=== PATIENT | female | born 1940 | race Two or more races ===

== ENCOUNTER 2017-07-31 11:13 | Emergency (ER) | payer OTHER ==
[~2017-07-31] VITALS: Ht 162.6 cm; Wt 79.4 kg
== END 2017-07-31 16:51 | disposition home or self-care (01) ==
LOC: ER 11:13
DX: S01.02XA Laceration with foreign body of scalp, initial encounter (principal); W18.31XA Fall on same level due to stepping on an object, initial encounter; Y93.01 Activity, walking, marching and hiking; Y92.018 Other place in single-family (private) house as the place of occurrence of the external cause; Y99.8 Other external cause status

== ENCOUNTER 2017-08-10 11:23 | Emergency (ER) | payer OTHER ==
[~2017-08-10] VITALS: Ht 157.5 cm; Wt 77.1 kg
[2017-08-10] MEDS ORDERED: COZAAR100 MG (13:48)
[2017-08-10] MEDS ORDERED: FORTAMET1000 MG (13:49)
[2017-08-10] MEDS ORDERED: ADULT ASPIRIN81 MG (13:49)
== END 2017-08-10 13:55 | disposition home or self-care (01) ==
LOC: ER 11:23
DX: Z48.02 Encounter for removal of sutures (principal)

== ENCOUNTER 2022-08-13 12:44 | Inpatient (IN) | payer OTHER ==
[~2022-08-13] VITALS: Ht 152.4 cm; Wt 81.6 kg
[~2022-08-13 12:44] MED LIST: ADULT ASPIRIN81 MG; COZAAR100 MG; COZAAR25 MG; FORTAMET1000 MG; GLIMEPIRIDE1 MG; METFORMIN HCL500 M2; NABUMETONE500 MG PO; PERCOCET 5/3251 TAB PO; SIMVASTATIN5 MG; SYNTHROID50 MCG
[2022-08-13] MEDS ORDERED: JANUMET 50-1,01 EACH (12:59)
--- NOTE | 2022-08-13 13:00 | NUR ---
PTE ALERTA Y ORIENTADA EN PERSONA LLEGA EN AMBULANCIA POR EMT. EMT REFIERE QUE SKY VECINOS LLAMARON AL 911 PORQUE LA VIERON TIRADA EN EL PISO. PTE SE OBSERVA CON SLURRED SPEECH LADO DERECHO, SE OBSERVA QUE PUEDE WEATHERIZATION COORDINATOR EXTREMIDADES SUPERIORES E INFERIORES. EMT REFIERE QUE PTE NO TIENE FAMILIARES, Y QUE NO SABEN QUE TANTO TIEMPO LA PTE ESTABA EN EL PISO. SE REALIZA EKG Y SE PRESENTA A MEDICO DE TURNO.
[2022-08-13] MEDS ORDERED: 0.9 % SODIUM CHLORIDE 500 ML IV STA (13:59)
--- NOTE | 2022-08-13 14:12 | NUR ---
ANA LUISA VILLASENOR ORIENTA A PTE SOBRE TRATAMIENTO A SEGUIR. LE COLECTA MUESTRAS, SE CANALIZA Y SE ADMINISTRA MEDICAMENTO AMANDA ORDEN MEDICA. PENDIENTE BOWLING BALL FINISHER, U/A, XRAY Y CT
[2022-08-13 15:38] LABS: HEMATOCRIT 40.7 % (36.0-45.00); MEAN CELL VOLUME 77.8 fL (80.00-100.00); MEAN CORPUSCULAR HEMOGLOBIN 24.8 pg (27.00-32.0); MEAN CORPUSCULAR HGB CONC 31.9 g/dl (32.0-36.0); PLATELET COUNT 319 K/uL (150-450); RED BLOOD COUNT 5.23 M/uL (4.00-6.00); RED CELL DISTRIBUTION WIDTH 17.6 % (11.5-14.5)
[2022-08-13 15:52] LABS: ALBUMIN 3.4 gm/dL (3.4-5.0); BILIRUBIN TOTAL 0.77 mg/dL (0.3-1.2); CALCIUM 9.5 mg/dL (8.5-10.1); CREATININE SERUM 0.78 mg/dL (0.55-1.02); GFR 70.71; GLOBULINA 4.1 G/DL (2.4-3.5); POTASSIUM 3.78 mEq/L (3.5-5.1); TOTAL PROTEIN 7.5 gm/dL (6.4-8.2)
[2022-08-13 15:54] LABS: INR 1.06; PARTIAL THROMBOPLASTIN TIME 29.2 SECONDS (22.0-34.0); PROTHROMBIN TIME 11.1 SECONDS (9.0-11.5)
[2022-08-13] MEDS ORDERED: NITROGLYCERIN IN 5 % DEXTROSE 250 ML IV SCH (17:30)
--- NOTE | 2022-08-13 19:44 | NUR ---
SE EJECUTAN TODAS LAS ORDENES MEDICAS BAJO MEDIDAS ASEPTICAS, PACIENTE PENDIENTE A RESULTADOS DE LABORATORIO.
[2022-08-13] MEDS ORDERED: PIPERACILLIN/TAZOBACTAM SODIUM 3.375 GM in DEXTROSE 5 % IN WATER 100 ML IV SCH (20:51)
[2022-08-13] MEDS ORDERED: INSULIN LISPRO 300 UNIT/3 ML UNITS SUBCUTANEO PRN (21:00)
[2022-08-13] MEDS ORDERED: ACETAMINOPHEN 500 MG GEL..CAP PO PRN (21:00)
[2022-08-13] MEDS ORDERED: DEXTROSE 50 % IN WATER 0.5 G/ML DISP.SYRIN IV PRN (21:00)
[2022-08-13] MEDS ORDERED: ONDANSETRON HCL 4 MG in 0.9 % SODIUM CHLORIDE 50 ML IV PRN (21:00)
[2022-08-13 21:05] LABS: PH,URINE 5.5 (5.0-8.0); URINE APPEARANCE Cloudy; URINE BILIRRUBIN Negative (NEGATIVE); URINE BLOOD Small; URINE COLOR Yellow; URINE GLUCOSE Negative (NEGATIVE); URINE LEUKOCYTE Moderate; URINE NITRATE Positive
[2022-08-13 21:08] LABS: URINE BACTERIA 6606.4 uL (0.0-1933); URINE EPITHELIAL CELLS 157.9 uL (0.0-38.8); URINE RBC 30.5 uL (0.0-20.8); URINE WBC 48.4 uL (0.0-23.2)
[2022-08-13 21:51] LABS: URINE PROTEIN 100 (NEGATIVE)
[2022-08-13] MEDS ORDERED: 0.9 % SODIUM CHLORIDE 1,000 ML IV SCH (23:45)
[2022-08-14 06:26] LABS: ABG PH 7.371 (7.35-7.45); ABG PO2 121.7 mmHg (80-100); ABG pCO2 37.1 mmHg (35-45); BASE EXCESS -3.7 mmol/l; SaO2 98.5 %; Tco2 22.2 mmol/l
[2022-08-14 06:54] LABS: allen test SATISFACTORY; o2 32 %; puncture site RADIAL LEFT
[2022-08-14 07:00] LABS: HEMATOCRIT 36.8 % (36.0-45.00); HEMOGLOBIN 11.7 g/dL (12.0-15.00); MEAN CORPUSCULAR HEMOGLOBIN 24.8 pg (27.00-32.0); MEAN CORPUSCULAR HGB CONC 31.8 g/dl (32.0-36.0); PLATELET COUNT 255 K/uL (150-450); RED BLOOD COUNT 4.71 M/uL (4.00-6.00); RED CELL DISTRIBUTION WIDTH 17.8 % (11.5-14.5)
[2022-08-14 07:20] LABS: CHOL HDL RATIO 5.8 (0-5.0); TSH 1.13 uIU/mL (0.358-3.74)
[2022-08-14 07:34] LABS: ERYTHROCYTE SEDIMENTATION RATE 83 mm/hr
[2022-08-14] MEDS ORDERED: FAMOTIDINE/PF 20 MG in 0.9 % SODIUM CHLORIDE 8 ML IV PUSH SCH (09:00)
[2022-08-14] MEDS ORDERED: ASPIRIN 81 MG TAB.CHEW PO SCH (09:00)
[2022-08-14] MEDS ORDERED: ATORVASTATIN CALCIUM 40 MG TABLET PO SCH (09:00)
[2022-08-14] MEDS ORDERED: PIPERACILLIN/TAZOBACTAM SODIUM 3.375 GM in 0.9 % SODIUM CHLORIDE 100 ML IV SCH (12:00)
[2022-08-14] MEDS ORDERED: LOSARTAN POTASSIUM 100 MG TABLET PO SCH ×2 (15:31→17:00)
[2022-08-14] MEDS ORDERED: ENALAPRILAT DIHYDRATE 1.25 MG/ML VIAL IV PRN (15:45)
[2022-08-14] MEDS ORDERED: NABUMETONE750 MG (16:02)
[2022-08-14] MEDS ORDERED: SIMVASTATIN40 MG (16:02)
[2022-08-14] MEDS ORDERED: PENTOXIFYLLINE400 MG (16:02)
[2022-08-14] MEDS ORDERED: GLIMEPIRIDE4 M1 (16:02)
[2022-08-14] MEDS ORDERED: CEFTRIAXONE SODIUM 2,000 MG VIAL IV SCH (17:00)
[2022-08-15 06:47] LABS: HEMATOCRIT 36.5 % (36.0-45.00); HEMOGLOBIN 11.8 g/dL (12.0-15.00); MEAN CELL VOLUME 78.7 fL (80.00-100.00); MEAN CORPUSCULAR HEMOGLOBIN 25.5 pg (27.00-32.0); MEAN CORPUSCULAR HGB CONC 32.3 g/dl (32.0-36.0); PLATELET COUNT 237 K/uL (150-450); RED BLOOD COUNT 4.64 M/uL (4.00-6.00); RED CELL DISTRIBUTION WIDTH 18.1 % (11.5-14.5)
[2022-08-15 08:46] LABS: ALBUMIN 2.9 gm/dL (3.4-5.0); BILIRUBIN TOTAL 0.45 mg/dL (0.3-1.2); CALCIUM 9.1 mg/dL (8.5-10.1); CREATININE SERUM 0.88 mg/dL (0.55-1.02); GFR 61.52; GLOBULINA 3.4 G/DL (2.4-3.5); MAGNESIUM 2.5 mg/dL (1.8-2.4); POTASSIUM 4.4 mEq/L (3.5-5.1); TOTAL PROTEIN 6.3 gm/dL (6.4-8.2)
[2022-08-15 08:49] LABS: C-REACTIVE PROTEIN 22.1 MG/DL (0.00-0.29)
[2022-08-15] MEDS ORDERED: ENOXAPARIN SODIUM 40 MG/0.4 ML SYRINGE SUBCUTANEO SCH (09:00)
[2022-08-15 09:13] LABS: CKMB 3.3 NG/ML (0.5-3.6)
[2022-08-15] MEDS ORDERED: FLUCONAZOLE IN NACL,ISO-OSM 400 MG/200 ML PIGGYBAG IV ONE (13:45)
[2022-08-15 13:49] LABS: PH,URINE 5.5 (5.0-8.0); URINE APPEARANCE Turbid; URINE BILIRRUBIN Negative (NEGATIVE); URINE BLOOD Moderate; URINE COLOR Yellow; URINE GLUCOSE Negative (NEGATIVE); URINE LEUKOCYTE Moderate; URINE NITRATE Negative; URINE PROTEIN 30 (NEGATIVE)
[2022-08-15 13:50] LABS: URINE BACTERIA 414.2 uL (0.0-1933); URINE EPITHELIAL CELLS 45.9 uL (0.0-38.8); URINE WBC 1459.8 uL (0.0-23.2)
[2022-08-15 14:09] LABS: URINE CRYSTALS MODERATE /HPF
[2022-08-15] MEDS ORDERED: CLOPIDOGREL BISULFATE 75 MG TABLET PO SCH (15:40)
[2022-08-16] MEDS ORDERED: FLUCONAZOLE IN NACL,ISO-OSM 100 ML IV SCH (12:00)
[2022-08-17] MEDS ORDERED: EMOLLIENT COMBINATION NO.92 2.5 OZ BOTTLE TOP SCH (09:00)
[2022-08-17] MEDS ORDERED: FUROsemide 20 MG/2 ML VIAL IV STA (19:20)
[2022-08-17] MEDS ORDERED: NITROGLYCERIN IN 5 % DEXTROSE 50 MG/250 ML BOTTLE IV SCH (21:00)
[2022-08-18] MEDS ORDERED: METOPROLOL TARTRATE 5MG/5ML AMPUL IV STA (02:46)
[2022-08-18] MEDS ORDERED: METOPROLOL TARTRATE 25 MG TABLET PO SCH (05:00)
[2022-08-18 06:23] LABS: HEMATOCRIT 35.4 % (36.0-45.00); HEMOGLOBIN 11.4 g/dL (12.0-15.00); MEAN CELL VOLUME 78.2 fL (80.00-100.00); MEAN CORPUSCULAR HEMOGLOBIN 25.2 pg (27.00-32.0); MEAN CORPUSCULAR HGB CONC 32.2 g/dl (32.0-36.0); PLATELET COUNT 250 K/uL (150-450); RED BLOOD COUNT 4.53 M/uL (4.00-6.00); RED CELL DISTRIBUTION WIDTH 18.8 % (11.5-14.5)
[2022-08-18] MEDS ORDERED: NITROGLYCERIN IN 5 % DEXTROSE 250 ML IV SCH (06:30)
[2022-08-18 06:48] LABS: CALCIUM 8.6 mg/dL (8.5-10.1); CREATININE SERUM 1.71 mg/dL (0.55-1.02); GFR 28.58; MAGNESIUM 2.5 mg/dL (1.8-2.4); PHOSPHOROUS 3.8 mg/dL (2.5-4.9); POTASSIUM 4.39 mEq/L (3.5-5.1)
[2022-08-18 06:51] LABS: C-REACTIVE PROTEIN 11.2 MG/DL (0.00-0.29)
[2022-08-18 07:05] LABS: ERYTHROCYTE SEDIMENTATION RATE 89 mm/hr
[2022-08-18] MEDS ORDERED: hydrALAZINE HCL 20 MG VIAL IV PRN (18:30)
[2022-08-18] MEDS ORDERED: SODIUM CHLORIDE 0.45 % 1,000 ML IV SCH (18:30)
[2022-08-19] MEDS ORDERED: METOPROLOL TARTRATE 25 MG TABLET PO SCH ×2 (01:00→05:00)
[2022-08-19 07:37] LABS: HEMATOCRIT 32.9 % (36.0-45.00); HEMOGLOBIN 10.5 g/dL (12.0-15.00); MEAN CELL VOLUME 78.9 fL (80.00-100.00); MEAN CORPUSCULAR HEMOGLOBIN 25.1 pg (27.00-32.0); MEAN CORPUSCULAR HGB CONC 31.9 g/dl (32.0-36.0); PLATELET COUNT 172 K/uL (150-450); RED BLOOD COUNT 4.17 M/uL (4.00-6.00); RED CELL DISTRIBUTION WIDTH 18.4 % (11.5-14.5)
[2022-08-19 08:20] LABS: ALBUMIN 2.4 gm/dL (3.4-5.0); CALCIUM 7.9 mg/dL (8.5-10.1); CREATININE SERUM 2.44 mg/dL (0.55-1.02); GFR 18.96; PHOSPHOROUS 4.2 mg/dL (2.5-4.9); POTASSIUM 4.38 mEq/L (3.5-5.1)
[2022-08-19] MEDS ORDERED: AMLODIPINE BESYLATE 5 MG TABLET PO SCH (09:00)
[2022-08-19] MEDS ORDERED: METOPROLOL TARTRATE 50 MG TABLET PO SCH (13:00)
[2022-08-19] MEDS ORDERED: MEROPENEM 500 MG/VIAL VIAL IV SCH (13:03)
[2022-08-20 07:41] LABS: URINE BILIRRUBIN NEGATIVE (NEGATIVE); URINE BLOOD LARGE; URINE GLUCOSE NEGATIVE (NEGATIVE); URINE LEUKOCYTE TRACE; URINE NITRATE POSITIVE; URINE PROTEIN NEGATIVE (NEGATIVE); URINE UROBILINOGEN 0.2 E.U./dl
[2022-08-20 08:02] LABS: PH,URINE 5.5; URINE APPEARANCE CLEAR; URINE COLOR YELLOW
[2022-08-20 08:03] LABS: URINE BACTERIA 41.5 uL (0.0-1933); URINE EPITHELIAL CELLS 9.8 uL (0.0-38.8); URINE RBC 280.9 uL (0.0-20.8); URINE WBC 160.8 uL (0.0-23.2)
[2022-08-20 08:06] LABS: URINE CRYSTALS MODERATE /HPF; URINE YEAST MODERATE /hpf
[2022-08-20 10:48] LABS: ALBUMIN 2.2 gm/dL (3.4-5.0); CALCIUM 8.3 mg/dL (8.5-10.1); CREATININE SERUM 0.85 mg/dL (0.55-1.02); GFR 64.03; PHOSPHOROUS 3.5 mg/dL (2.5-4.9); POTASSIUM 4.46 mEq/L (3.5-5.1)
[2022-08-20 11:28] LABS: PROCALCITONIN 0.119 ng/ml (0.020-0.080)
[2022-08-20 11:35] LABS: CORTISOL 25.1 ug/dl
[2022-08-21 07:32] LABS: CALCIUM 7.8 mg/dL (8.5-10.1); CREATININE SERUM 0.62 mg/dL (0.55-1.02); GFR 92.15; PHOSPHOROUS 3.4 mg/dL (2.5-4.9); POTASSIUM 4.37 mEq/L (3.5-5.1)
[2022-08-21 07:33] LABS: CALCIUM 7.8 mg/dL (8.5-10.1); CREATININE SERUM 0.58 mg/dL (0.55-1.02); GFR 99.53; POTASSIUM 4.32 mEq/L (3.5-5.1)
[2022-08-21] MEDS ORDERED: AMLODIPINE BESYLATE 10 MG TABLET PO SCH (09:00)
[2022-08-21 13:18] LABS: PLATELET ESTIMATE NORMAL (NORMAL)
[2022-08-21] MEDS ORDERED: MEROPENEM 500 MG/VIAL VIAL IV SCH (17:00)
[2022-08-22] MEDS ORDERED: AMINO ACIDS/PROTEIN HYDROLYS 30 ML BLIST.PACK NGT SCH (17:00)
[2022-08-22] MEDS ORDERED: FAMOtidine 20 MG TABLET PO SCH (17:00)
[2022-08-22] MEDS ORDERED: BETHANECHOL CHLORIDE 25 MG TABLET PO SCH (17:00)
[2022-08-23 06:53] LABS: HEMATOCRIT 35.4 % (36.0-45.00); HEMOGLOBIN 11.5 g/dL (12.0-15.00); MEAN CELL VOLUME 77.4 fL (80.00-100.00); MEAN CORPUSCULAR HGB CONC 32.3 g/dl (32.0-36.0); PLATELET COUNT 229 K/uL (150-450); RED BLOOD COUNT 4.58 M/uL (4.00-6.00); RED CELL DISTRIBUTION WIDTH 17.9 % (11.5-14.5)
[2022-08-23 07:52] LABS: ALBUMIN 2.3 gm/dL (3.4-5.0); CREATININE SERUM 1.44 mg/dL (0.55-1.02); GFR 34.85; POTASSIUM 3.95 mEq/L (3.5-5.1)
[2022-08-24 08:07] LABS: ALBUMIN 1.9 gm/dL (3.4-5.0); BILIRUBIN TOTAL 0.22 mg/dL (0.3-1.2); CALCIUM 7.6 mg/dL (8.5-10.1); CREATININE SERUM 0.61 mg/dL (0.55-1.02); GFR 93.9; GLOBULINA 2.7 G/DL (2.4-3.5); POTASSIUM 4.26 mEq/L (3.5-5.1); TOTAL PROTEIN 4.6 gm/dL (6.4-8.2)
[2022-08-24] MEDS ORDERED: hydrALAZINE HCL 25 MG TABLET PO SCH (21:00)
[2022-08-25 06:29] LABS: HEMATOCRIT 30.7 % (36.0-45.00); MEAN CELL VOLUME 76.9 fL (80.00-100.00); MEAN CORPUSCULAR HEMOGLOBIN 25.1 pg (27.00-32.0); MEAN CORPUSCULAR HGB CONC 32.6 g/dl (32.0-36.0); PLATELET COUNT 198 K/uL (150-450); RED BLOOD COUNT 3.99 M/uL (4.00-6.00); RED CELL DISTRIBUTION WIDTH 18.3 % (11.5-14.5)
[2022-08-25 07:00] LABS: CALCIUM 7.8 mg/dL (8.5-10.1); CREATININE SERUM 0.46 mg/dL (0.55-1.02); GFR 130.05; POTASSIUM 4.37 mEq/L (3.5-5.1)
[2022-08-25] MEDS ORDERED: hydrALAZINE HCL 10 MG TABLET PO SCH (09:00)
[2022-08-25] MEDS ORDERED: LACTOBACILLUS ACIDOPHILUS 1 CAP CAP PO SCH (17:00)
[2022-08-26] MEDS ORDERED: IRON FUM,PS/FOLIC/BCOMP,C NO.9 1 CAP CAPSULE PO SCH (09:00)
[2022-08-27 11:27] LABS: ALBUMIN 2.1 gm/dL (3.4-5.0); BILIRUBIN TOTAL 0.36 mg/dL (0.3-1.2); CALCIUM 8.2 mg/dL (8.5-10.1); CREATININE SERUM 0.42 mg/dL (0.55-1.02); GFR 144.44; GLOBULINA 3.1 G/DL (2.4-3.5); POTASSIUM 5.02 mEq/L (3.5-5.1); TOTAL PROTEIN 5.2 gm/dL (6.4-8.2)
[2022-08-29] MEDS ORDERED: 0.9 % SODIUM CHLORIDE 1,000 ML IV SCH (08:11)
[2022-08-30 08:53] LABS: BILIRUBIN TOTAL 0.3 mg/dL (0.3-1.2); CALCIUM 8.2 mg/dL (8.5-10.1); CREATININE SERUM 0.49 mg/dL (0.55-1.02); GFR 120.91; GLOBULINA 3.2 G/DL (2.4-3.5); POTASSIUM 5.47 mEq/L (3.5-5.1); TOTAL PROTEIN 5.2 gm/dL (6.4-8.2)
[2022-08-30 09:22] LABS: INR 1.07; PROTHROMBIN TIME 11.2 SECONDS (9.0-11.5)
[2022-08-30 09:26] LABS: PARTIAL THROMBOPLASTIN TIME < 20.0 SECONDS (22.0-34.0)
[2022-08-31] MEDS ORDERED: MEROPENEM 500 MG/VIAL VIAL IV SCH (14:31)
[2022-09-01 22:49] LABS: ALBUMIN 2.1 gm/dL (3.4-5.0); BILIRUBIN TOTAL 0.42 mg/dL (0.3-1.2); CALCIUM 8.5 mg/dL (8.5-10.1); CREATININE SERUM 0.38 mg/dL (0.55-1.02); GFR 162.13; GLOBULINA 3.1 G/DL (2.4-3.5); POTASSIUM 4.82 mEq/L (3.5-5.1); TOTAL PROTEIN 5.2 gm/dL (6.4-8.2)
[2022-09-03 15:50] LABS: ALBUMIN 2.3 gm/dL (3.4-5.0); BILIRUBIN TOTAL 0.45 mg/dL (0.3-1.2); CALCIUM 8.6 mg/dL (8.5-10.1); CREATININE SERUM 0.65 mg/dL (0.55-1.02); GFR 87.26; GLOBULINA 3.4 G/DL (2.4-3.5); POTASSIUM 4.26 mEq/L (3.5-5.1); TOTAL PROTEIN 5.7 gm/dL (6.4-8.2)
[2022-09-03 16:06] LABS: URINE BILIRRUBIN NEGATIVE (NEGATIVE); URINE BLOOD MODERATE; URINE LEUKOCYTE SMALL; URINE NITRATE NEGATIVE; URINE PROTEIN NEGATIVE (NEGATIVE); URINE UROBILINOGEN 0.2 E.U./dl
[2022-09-03 16:31] LABS: URINE APPEARANCE CLEAR; URINE COLOR YELLOW; URINE GLUCOSE 250 MG/DL (NEGATIVE)
[2022-09-03 16:32] LABS: URINE BACTERIA FEW; URINE EPITHELIAL CELLS 0-4 /HPF; URINE WBC 13-20 /hpf; URINE YEAST MODERATE /hpf
[2022-09-03] MEDS ORDERED: VANCOMYCIN HCL 1,000 MG VIAL IV SCH (17:00)
[2022-09-03] MEDS ORDERED: MEROPENEM 500 MG/VIAL VIAL IV SCH (17:00)
[2022-09-03] MEDS ORDERED: INSULIN GLARGINE,HUM.REC.ANLOG 1,000 UNITS/10 ML UNITS SUBCUTANEO STA (21:29)
[2022-09-04 07:45] LABS: HEMATOCRIT 29.9 % (36.0-45.00); HEMOGLOBIN 9.9 g/dL (12.0-15.00); MEAN CORPUSCULAR HEMOGLOBIN 25.8 pg (27.00-32.0); PLATELET COUNT 265 K/uL (150-450); RED BLOOD COUNT 3.83 M/uL (4.00-6.00); RED CELL DISTRIBUTION WIDTH 18.3 % (11.5-14.5)
[2022-09-04] MEDS ORDERED: FLUCONAZOLE IN NACL,ISO-OSM 200 MG/100 ML PIGGYBAG IV ONE (16:00)
[2022-09-04] MEDS ORDERED: FLUCONAZOLE IN NACL,ISO-OSM 2 MG/ML ML IV SCH (17:00)
[2022-09-04] MEDS ORDERED: INSULIN GLARGINE,HUM.REC.ANLOG 1,000 UNITS/10 ML UNITS SUBCUTANEO SCH (21:00)
[2022-09-05] MEDS ORDERED: FLUCONAZOLE IN NACL,ISO-OSM 50 ML IV SCH (12:00)
[2022-09-05] MEDS ORDERED: FLUCONAZOLE IN NACL,ISO-OSM 2 MG/ML ML IV SCH (17:00)
[2022-09-06 07:55] LABS: HEMATOCRIT 31.4 % (36.0-45.00); HEMOGLOBIN 10.3 g/dL (12.0-15.00); MEAN CELL VOLUME 77.6 fL (80.00-100.00); MEAN CORPUSCULAR HEMOGLOBIN 25.4 pg (27.00-32.0); MEAN CORPUSCULAR HGB CONC 32.7 g/dl (32.0-36.0); PLATELET COUNT 275 K/uL (150-450); RED BLOOD COUNT 4.05 M/uL (4.00-6.00); RED CELL DISTRIBUTION WIDTH 17.6 % (11.5-14.5)
[2022-09-06 08:04] LABS: BILIRUBIN TOTAL 0.49 mg/dL (0.3-1.2); CALCIUM 8.4 mg/dL (8.5-10.1); CREATININE SERUM 0.31 mg/dL (0.55-1.02); GFR 205.07; GLOBULINA 3.1 G/DL (2.4-3.5); POTASSIUM 4.21 mEq/L (3.5-5.1); TOTAL PROTEIN 5.1 gm/dL (6.4-8.2)
[2022-09-07 10:18] LABS: ABG PH 7.437 (7.35-7.45); ABG PO2 76.3 mmHg (80-100); ABG pCO2 34.5 mmHg (35-45); BASE EXCESS -0.8 mmol/l; BICARBONATE 22.8 mmol/l (23-25); SaO2 95.6 %; Tco2 23.8 mmol/l; o2 21 %; puncture site RADIAL LEFT
[2022-09-07 10:19] LABS: allen test SATISFACTORY
[2022-09-09] MEDS ORDERED: SODIUM HYPOCHLORITE 1OZ TOP SCH (11:32)
[2022-09-09 15:09] LABS: HEMATOCRIT 36.1 % (36.0-45.00); HEMOGLOBIN 11.6 g/dL (12.0-15.00); MEAN CELL VOLUME 79.4 fL (80.00-100.00); MEAN CORPUSCULAR HEMOGLOBIN 25.4 pg (27.00-32.0); PLATELET COUNT 321 K/uL (150-450); RED BLOOD COUNT 4.55 M/uL (4.00-6.00); RED CELL DISTRIBUTION WIDTH 17.3 % (11.5-14.5)
[2022-09-09 15:35] LABS: ALBUMIN 2.4 gm/dL (3.4-5.0); BILIRUBIN TOTAL 0.52 mg/dL (0.3-1.2); CALCIUM 9.1 mg/dL (8.5-10.1); CREATININE SERUM 0.38 mg/dL (0.55-1.02); FERRITIN 105.2 NG/ML (8-252); GFR 162.13; GLOBULINA 3.4 G/DL (2.4-3.5); POTASSIUM 4.71 mEq/L (3.5-5.1); TOTAL PROTEIN 5.8 gm/dL (6.4-8.2)
[2022-09-09 15:43] LABS: C-REACTIVE PROTEIN 4.8 MG/DL (0.00-0.29)
[2022-09-09] MEDS ORDERED: VANCOMYCIN HCL 1,000 MG VIAL IV SCH (17:00)
[2022-09-10 09:02] LABS: HEMATOCRIT 33.2 % (36.0-45.00); HEMOGLOBIN 10.9 g/dL (12.0-15.00); MEAN CELL VOLUME 77.7 fL (80.00-100.00); MEAN CORPUSCULAR HEMOGLOBIN 25.4 pg (27.00-32.0); MEAN CORPUSCULAR HGB CONC 32.6 g/dl (32.0-36.0); PLATELET COUNT 304 K/uL (150-450); RED BLOOD COUNT 4.28 M/uL (4.00-6.00); RED CELL DISTRIBUTION WIDTH 18.1 % (11.5-14.5)
[2022-09-10 09:37] LABS: ALBUMIN 2.4 gm/dL (3.4-5.0); BILIRUBIN TOTAL 0.55 mg/dL (0.3-1.2); CALCIUM 8.9 mg/dL (8.5-10.1); CREATININE SERUM 0.31 mg/dL (0.55-1.02); GFR 205.07; GLOBULINA 3.3 G/DL (2.4-3.5); POTASSIUM 4.27 mEq/L (3.5-5.1); TOTAL PROTEIN 5.7 gm/dL (6.4-8.2)
[2022-09-11 08:02] LABS: HEMOGLOBIN 11.8 g/dL (12.0-15.00); MEAN CELL VOLUME 78.2 fL (80.00-100.00); MEAN CORPUSCULAR HEMOGLOBIN 25.7 pg (27.00-32.0); MEAN CORPUSCULAR HGB CONC 32.8 g/dl (32.0-36.0); PLATELET COUNT 337 K/uL (150-450); RED CELL DISTRIBUTION WIDTH 17.7 % (11.5-14.5)
[2022-09-11 08:44] LABS: ALBUMIN 2.5 gm/dL (3.4-5.0); BILIRUBIN TOTAL 0.72 mg/dL (0.3-1.2); CALCIUM 9.6 mg/dL (8.5-10.1); CREATININE SERUM 0.38 mg/dL (0.55-1.02); GFR 162.13; GLOBULINA 3.6 G/DL (2.4-3.5); POTASSIUM 4.79 mEq/L (3.5-5.1); TOTAL PROTEIN 6.1 gm/dL (6.4-8.2)
[2022-09-11 08:45] LABS: C-REACTIVE PROTEIN 5.38 MG/DL (0.00-0.29)
[2022-09-11] MEDS ORDERED: AMINO ACIDS/PROTEIN HYDROLYS 30 ML BLIST.PACK PO SCH (09:00)
[2022-09-11] MEDS ORDERED: CIPROFLOXACIN IN 5 % DEXTROSE 400 MG/200 ML PIGGYBAG IV SCH (17:00)
[2022-09-12 07:47] LABS: HEMATOCRIT 33.3 % (36.0-45.00); HEMOGLOBIN 11.1 g/dL (12.0-15.00); MEAN CELL VOLUME 77.5 fL (80.00-100.00); MEAN CORPUSCULAR HEMOGLOBIN 25.9 pg (27.00-32.0); MEAN CORPUSCULAR HGB CONC 33.3 g/dl (32.0-36.0); PLATELET COUNT 309 K/uL (150-450); RED BLOOD COUNT 4.29 M/uL (4.00-6.00); RED CELL DISTRIBUTION WIDTH 17.4 % (11.5-14.5)
[2022-09-12 08:15] LABS: ALBUMIN 2.3 gm/dL (3.4-5.0); BILIRUBIN TOTAL 0.53 mg/dL (0.3-1.2); CALCIUM 9.1 mg/dL (8.5-10.1); CREATININE SERUM 0.34 mg/dL (0.55-1.02); GFR 184.33; GLOBULINA 3.2 G/DL (2.4-3.5); POTASSIUM 4.51 mEq/L (3.5-5.1); TOTAL PROTEIN 5.5 gm/dL (6.4-8.2)
[2022-09-12] MEDS ORDERED: IPRATROPIUM BROMIDE 0.5 MG/2.5 ML AMPUL.NEB IH SCH (13:01)
[2022-09-14] MEDS ORDERED: INSULIN GLARGINE,HUM.REC.ANLOG 1,000 UNITS/10 ML UNITS SUBCUTANEO SCH (21:00)
[2022-09-15 09:44] LABS: HEMATOCRIT 29.8 % (36.0-45.00); HEMOGLOBIN 9.7 g/dL (12.0-15.00); MEAN CELL VOLUME 79.1 fL (80.00-100.00); MEAN CORPUSCULAR HEMOGLOBIN 25.8 pg (27.00-32.0); MEAN CORPUSCULAR HGB CONC 32.6 g/dl (32.0-36.0); PLATELET COUNT 263 K/uL (150-450); RED BLOOD COUNT 3.76 M/uL (4.00-6.00); RED CELL DISTRIBUTION WIDTH 17.5 % (11.5-14.5)
[2022-09-15 11:50] LABS: ALBUMIN 2.3 gm/dL (3.4-5.0); BILIRUBIN TOTAL 0.65 mg/dL (0.3-1.2); CALCIUM 8.2 mg/dL (8.5-10.1); CREATININE SERUM 0.3 mg/dL (0.55-1.02); GFR 212.98; GLOBULINA 3.1 G/DL (2.4-3.5); POTASSIUM 4.07 mEq/L (3.5-5.1); TOTAL PROTEIN 5.4 gm/dL (6.4-8.2)
[2022-09-16] MEDS ORDERED: AMPICILLIN SODIUM/SULBACTAM NA 3,000 MG VIAL IV SCH (14:00)
[2022-09-16] MEDS ORDERED: INSULIN GLARGINE,HUM.REC.ANLOG 1,000 UNITS/10 ML UNITS SUBCUTANEO SCH (21:00)
[2022-09-17] MEDS ORDERED: VANCOMYCIN HCL 5 MG/ML REDILUIDO IV SCH (17:00)
[2022-09-19 08:31] LABS: HEMATOCRIT 30.9 % (36.0-45.00); HEMOGLOBIN 10.2 g/dL (12.0-15.00); MEAN CELL VOLUME 79.7 fL (80.00-100.00); MEAN CORPUSCULAR HEMOGLOBIN 26.3 pg (27.00-32.0); RED BLOOD COUNT 3.88 M/uL (4.00-6.00); RED CELL DISTRIBUTION WIDTH 17.5 % (11.5-14.5)
[2022-09-19 08:40] LABS: BILIRUBIN TOTAL 0.46 mg/dL (0.3-1.2); C-REACTIVE PROTEIN 6.43 MG/DL (0.00-0.29); CALCIUM 8.3 mg/dL (8.5-10.1); CREATININE SERUM 0.36 mg/dL (0.55-1.02); GFR 172.57; GLOBULINA 3.1 G/DL (2.4-3.5); MAGNESIUM 1.9 mg/dL (1.8-2.4); POTASSIUM 4.4 mEq/L (3.5-5.1); TOTAL PROTEIN 5.1 gm/dL (6.4-8.2)
[2022-09-19 09:11] LABS: PLATELET COUNT 195 K/uL (150-450)
[2022-09-22 12:54] LABS: HEMOGLOBIN 10.8 g/dL (12.0-15.00); MEAN CELL VOLUME 79.2 fL (80.00-100.00); MEAN CORPUSCULAR HGB CONC 32.8 g/dl (32.0-36.0); PLATELET COUNT 238 K/uL (150-450); RED BLOOD COUNT 4.17 M/uL (4.00-6.00); RED CELL DISTRIBUTION WIDTH 17.6 % (11.5-14.5)
[2022-09-22 13:55] LABS: ALBUMIN 2.4 gm/dL (3.4-5.0); BILIRUBIN TOTAL 0.55 mg/dL (0.3-1.2); CALCIUM 8.9 mg/dL (8.5-10.1); CREATININE SERUM 0.38 mg/dL (0.55-1.02); GFR 162.13; GLOBULINA 3.4 G/DL (2.4-3.5); POTASSIUM 4.18 mEq/L (3.5-5.1); TOTAL PROTEIN 5.8 gm/dL (6.4-8.2)
[2022-09-23 09:32] LABS: ALBUMIN 2.3 gm/dL (3.4-5.0); BILIRUBIN TOTAL 0.53 mg/dL (0.3-1.2); C-REACTIVE PROTEIN 4.02 MG/DL (0.00-0.29); CALCIUM 8.6 mg/dL (8.5-10.1); CREATININE SERUM 0.35 mg/dL (0.55-1.02); GFR 178.27; MAGNESIUM 1.9 mg/dL (1.8-2.4); PHOSPHOROUS 3.9 mg/dL (2.5-4.9); POTASSIUM 4.03 mEq/L (3.5-5.1); TOTAL PROTEIN 5.3 gm/dL (6.4-8.2)
[2022-09-24] MEDS ORDERED: VANCOMYCIN HCL 1,000 MG VIAL IV SCH (17:00)
[2022-09-25 07:44] LABS: HEMATOCRIT 27.9 % (36.0-45.00); HEMOGLOBIN 9.2 g/dL (12.0-15.00); MEAN CELL VOLUME 78.6 fL (80.00-100.00); MEAN CORPUSCULAR HEMOGLOBIN 25.9 pg (27.00-32.0); PLATELET COUNT 273 K/uL (150-450); RED BLOOD COUNT 3.55 M/uL (4.00-6.00); RED CELL DISTRIBUTION WIDTH 17.7 % (11.5-14.5)
[2022-09-25 08:14] LABS: BILIRUBIN TOTAL 0.41 mg/dL (0.3-1.2); CALCIUM 8.4 mg/dL (8.5-10.1); CREATININE SERUM 0.36 mg/dL (0.55-1.02); GFR 172.57; GLOBULINA 2.9 G/DL (2.4-3.5); MAGNESIUM 1.8 mg/dL (1.8-2.4); PHOSPHOROUS 4.2 mg/dL (2.5-4.9); POTASSIUM 3.9 mEq/L (3.5-5.1); TOTAL PROTEIN 4.9 gm/dL (6.4-8.2)
[2022-09-25 08:20] LABS: C-REACTIVE PROTEIN 4.71 MG/DL (0.00-0.29)
[2022-09-28] MEDS ORDERED: AMINO ACIDS/PROTEIN HYDROLYS 30 ML BLIST.PACK PO SCH (17:00)
[2022-09-29 08:17] LABS: HEMATOCRIT 28.7 % (36.0-45.00); HEMOGLOBIN 9.6 g/dL (12.0-15.00); MEAN CELL VOLUME 78.8 fL (80.00-100.00); MEAN CORPUSCULAR HEMOGLOBIN 26.3 pg (27.00-32.0); MEAN CORPUSCULAR HGB CONC 33.4 g/dl (32.0-36.0); PLATELET COUNT 292 K/uL (150-450); RED BLOOD COUNT 3.64 M/uL (4.00-6.00); RED CELL DISTRIBUTION WIDTH 17.7 % (11.5-14.5)
[2022-09-29 08:32] LABS: ERYTHROCYTE SEDIMENTATION RATE 70 mm/hr
[2022-09-29 08:58] LABS: ALBUMIN 2.1 gm/dL (3.4-5.0); BILIRUBIN TOTAL 0.41 mg/dL (0.3-1.2); CALCIUM 8.3 mg/dL (8.5-10.1); CREATININE SERUM 0.33 mg/dL (0.55-1.02); GFR 190.79; GLOBULINA 2.9 G/DL (2.4-3.5); POTASSIUM 3.58 mEq/L (3.5-5.1)
[2022-09-29 09:18] LABS: C-REACTIVE PROTEIN 2.78 MG/DL (0.00-0.29)
[2022-10-02] MEDS ORDERED: hydrALAZINE HCL 25 MG TABLET PO SCH (09:00)
[2022-10-07 10:57] LABS: HEMATOCRIT 33.1 % (36.0-45.00); HEMOGLOBIN 10.9 g/dL (12.0-15.00); MEAN CELL VOLUME 79.7 fL (80.00-100.00); MEAN CORPUSCULAR HEMOGLOBIN 26.2 pg (27.00-32.0); MEAN CORPUSCULAR HGB CONC 32.9 g/dl (32.0-36.0); PLATELET COUNT 317 K/uL (150-450); RED BLOOD COUNT 4.16 M/uL (4.00-6.00); RED CELL DISTRIBUTION WIDTH 18.5 % (11.5-14.5)
[2022-10-07 11:50] LABS: ALBUMIN 2.4 gm/dL (3.4-5.0); BILIRUBIN TOTAL 0.38 mg/dL (0.3-1.2); CALCIUM 8.6 mg/dL (8.5-10.1); CREATININE SERUM 0.36 mg/dL (0.55-1.02); GFR 172.57; GLOBULINA 3.2 G/DL (2.4-3.5); POTASSIUM 3.77 mEq/L (3.5-5.1); TOTAL PROTEIN 5.6 gm/dL (6.4-8.2)
[2022-10-07 12:04] LABS: C-REACTIVE PROTEIN 2.09 MG/DL (0.00-0.29)
[2022-10-15 08:18] LABS: HEMATOCRIT 31.5 % (36.0-45.00); HEMOGLOBIN 10.4 g/dL (12.0-15.00); MEAN CELL VOLUME 78.9 fL (80.00-100.00); MEAN CORPUSCULAR HEMOGLOBIN 26.1 pg (27.00-32.0); MEAN CORPUSCULAR HGB CONC 33.1 g/dl (32.0-36.0); PLATELET COUNT 315 K/uL (150-450); RED BLOOD COUNT 3.99 M/uL (4.00-6.00); RED CELL DISTRIBUTION WIDTH 17.6 % (11.5-14.5)
[2022-10-15 09:01] LABS: ALBUMIN 2.3 gm/dL (3.4-5.0); BILIRUBIN TOTAL 0.42 mg/dL (0.3-1.2); CALCIUM 8.5 mg/dL (8.5-10.1); GLOBULINA 2.9 G/DL (2.4-3.5); MAGNESIUM 1.6 mg/dL (1.8-2.4); PHOSPHOROUS 3.7 mg/dL (2.5-4.9); POTASSIUM 3.32 mEq/L (3.5-5.1); TOTAL PROTEIN 5.2 gm/dL (6.4-8.2)
[2022-10-15 09:52] LABS: GFR 275.53
[2022-10-15 09:53] LABS: C-REACTIVE PROTEIN 3.15 MG/DL (0.00-0.29); CREATININE SERUM 0.24 mg/dL (0.55-1.02)
[2022-10-15] MEDS ORDERED: POTASSIUM CHLORIDE IN WATER 100 ML IV ONE (14:45)
[2022-10-15] MEDS ORDERED: MAGNESIUM SULFATE IN WATER 4 GM/100 ML PIGGYBACK IV ONE (14:45)
[2022-10-19 07:45] LABS: HEMATOCRIT 31.8 % (36.0-45.00); HEMOGLOBIN 10.4 g/dL (12.0-15.00); MEAN CELL VOLUME 81.2 fL (80.00-100.00); MEAN CORPUSCULAR HEMOGLOBIN 26.6 pg (27.00-32.0); MEAN CORPUSCULAR HGB CONC 32.7 g/dl (32.0-36.0); PLATELET COUNT 322 K/uL (150-450); RED BLOOD COUNT 3.92 M/uL (4.00-6.00); RED CELL DISTRIBUTION WIDTH 17.5 % (11.5-14.5)
[2022-10-19 08:14] LABS: ALBUMIN 2.2 gm/dL (3.4-5.0); BILIRUBIN TOTAL 0.36 mg/dL (0.3-1.2); CALCIUM 8.2 mg/dL (8.5-10.1); GLOBULINA 3.1 G/DL (2.4-3.5); MAGNESIUM 1.9 mg/dL (1.8-2.4); POTASSIUM 3.35 mEq/L (3.5-5.1); TOTAL PROTEIN 5.3 gm/dL (6.4-8.2)
[2022-10-19 08:25] LABS: C-REACTIVE PROTEIN 6.23 MG/DL (0.00-0.29); CREATININE SERUM 0.28 mg/dL (0.55-1.02); GFR 230.63
[2022-10-19] MEDS ORDERED: FUROsemide 20 MG/2 ML VIAL IV SCH (23:41)
[2022-10-25 07:05] LABS: HEMATOCRIT 35.1 % (36.0-45.00); HEMOGLOBIN 11.6 g/dL (12.0-15.00); MEAN CORPUSCULAR HEMOGLOBIN 26.1 pg (27.00-32.0); MEAN CORPUSCULAR HGB CONC 33.1 g/dl (32.0-36.0); PLATELET COUNT 318 K/uL (150-450); RED BLOOD COUNT 4.45 M/uL (4.00-6.00); RED CELL DISTRIBUTION WIDTH 17.3 % (11.5-14.5)
[2022-10-25 07:56] LABS: ALBUMIN 2.4 gm/dL (3.4-5.0); BILIRUBIN TOTAL 0.31 mg/dL (0.3-1.2); CALCIUM 8.6 mg/dL (8.5-10.1); CREATININE SERUM 0.34 mg/dL (0.55-1.02); GFR 184.33; GLOBULINA 3.2 G/DL (2.4-3.5); POTASSIUM 3.17 mEq/L (3.5-5.1); TOTAL PROTEIN 5.6 gm/dL (6.4-8.2)
[2022-10-25] MEDS ORDERED: POTASSIUM CHLORIDE IN WATER 100 ML IV ONE (16:00)
[2022-10-29] MEDS ORDERED: METRONIDAZOLE/SODIUM CHLORIDE 100 ML IV SCH (13:00)
[2022-10-29] MEDS ORDERED: COLLAGENASE CLOSTRIDIUM HIST. 30 GM TUBE TOP SCH (17:00)
[2022-10-29] MEDS ORDERED: CEFTOLOZANE/TAZOBACTAM 1.5 GM VIAL IV SCH (17:00)
[2022-11-01 09:05] LABS: MEAN CELL VOLUME 79.4 fL (80.00-100.00); MEAN CORPUSCULAR HGB CONC 33.8 g/dl (32.0-36.0); PLATELET COUNT 263 K/uL (150-450); RED BLOOD COUNT 2.93 M/uL (4.00-6.00); RED CELL DISTRIBUTION WIDTH 16.3 % (11.5-14.5)
[2022-11-01 09:18] LABS: HEMATOCRIT 23.3 % (36.0-45.00); HEMOGLOBIN 7.8 g/dL (12.0-15.00); MEAN CORPUSCULAR HEMOGLOBIN 26.6 pg (27.00-32.0)
[2022-11-01 09:31] LABS: ALBUMIN 1.8 gm/dL (3.4-5.0); BILIRUBIN TOTAL 0.28 mg/dL (0.3-1.2); CALCIUM 8.1 mg/dL (8.5-10.1); GLOBULINA 2.6 G/DL (2.4-3.5); MAGNESIUM 1.8 mg/dL (1.8-2.4); PHOSPHOROUS 3.3 mg/dL (2.5-4.9); POTASSIUM 3.21 mEq/L (3.5-5.1); TOTAL PROTEIN 4.4 gm/dL (6.4-8.2)
[2022-11-01 09:32] LABS: C-REACTIVE PROTEIN 7.48 MG/DL (0.00-0.29); GFR 410.2
[2022-11-01] MEDS ORDERED: FUROsemide 20 MG/2 ML VIAL IV SCH (10:00)
[2022-11-01 10:18] LABS: HEMATOCRIT 25.8 % (36.0-45.00); MEAN CELL VOLUME 79.5 fL (80.00-100.00); MEAN CORPUSCULAR HGB CONC 33.7 g/dl (32.0-36.0); PLATELET COUNT 247 K/uL (150-450); RED BLOOD COUNT 3.25 M/uL (4.00-6.00); RED CELL DISTRIBUTION WIDTH 15.9 % (11.5-14.5)
[2022-11-01 10:25] LABS: MEAN CORPUSCULAR HEMOGLOBIN 26.7 pg (27.00-32.0)
[2022-11-01 10:28] LABS: CREATININE SERUM 0.17 mg/dL (0.55-1.02)
[2022-11-01 10:32] LABS: HEMOGLOBIN 8.7 g/dL (12.0-15.00)
[2022-11-01 10:33] LABS: ERYTHROCYTE SEDIMENTATION RATE 63 mm/hr
[2022-11-01] MEDS ORDERED: POTASSIUM CHLORIDE 20MEQ/100ML H2O PB IV ONE (13:27)
[2022-11-02 10:42] LABS: COL EPI 100 SECONDS (82-175); FIBRINOGEN 542 mg/dL (187.0-446.0); INR 1.07; PARTIAL THROMBOPLASTIN TIME 25.8 SECONDS (22.0-34.0); PROTHROMBIN TIME 11.2 SECONDS (9.0-11.5)
[2022-11-02 15:00] LABS: ob POSITIVE (NEGATIVE)
[2022-11-03 03:18] LABS: HEMATOCRIT 33.7 % (36.0-45.00); HEMOGLOBIN 11.2 g/dL (12.0-15.00); MEAN CELL VOLUME 79.3 fL (80.00-100.00); MEAN CORPUSCULAR HEMOGLOBIN 26.4 pg (27.00-32.0); MEAN CORPUSCULAR HGB CONC 33.3 g/dl (32.0-36.0); PLATELET COUNT 316 K/uL (150-450); RED BLOOD COUNT 4.25 M/uL (4.00-6.00); RED CELL DISTRIBUTION WIDTH 16.2 % (11.5-14.5)
[2022-11-03 07:52] LABS: PLATELET ESTIMATE NORMAL (NORMAL)
[2022-11-03 07:54] LABS: CALCIUM 8.5 mg/dL (8.5-10.1); GFR 251.22; MAGNESIUM 1.8 mg/dL (1.8-2.4); PHOSPHOROUS 2.8 mg/dL (2.5-4.9); POTASSIUM 3.56 mEq/L (3.5-5.1)
[2022-11-03 07:56] LABS: CREATININE SERUM 0.26 mg/dL (0.55-1.02)
[2022-11-04] MEDS ORDERED: PANTOPRAZOLE SODIUM 40 MG/VIAL VIAL IV SCH (07:30)
[2022-11-04 10:36] LABS: HEMATOCRIT 35.3 % (36.0-45.00); HEMOGLOBIN 11.7 g/dL (12.0-15.00); MEAN CORPUSCULAR HEMOGLOBIN 26.5 pg (27.00-32.0); MEAN CORPUSCULAR HGB CONC 33.1 g/dl (32.0-36.0); PLATELET COUNT 305 K/uL (150-450); RED BLOOD COUNT 4.41 M/uL (4.00-6.00); RED CELL DISTRIBUTION WIDTH 16.4 % (11.5-14.5)
[2022-11-04 11:12] LABS: ALBUMIN 2.1 gm/dL (3.4-5.0); BILIRUBIN TOTAL 0.31 mg/dL (0.3-1.2); CALCIUM 8.2 mg/dL (8.5-10.1); GFR 289.41; GLOBULINA 2.9 G/DL (2.4-3.5); POTASSIUM 3.96 mEq/L (3.5-5.1)
[2022-11-04 11:14] LABS: CREATININE SERUM 0.23 mg/dL (0.55-1.02)
[2022-11-05] MEDS ORDERED: VITAMIN B COMPLEX 1 EACH PO SCH (09:00)
[2022-11-05] MEDS ORDERED: CYANOCOBALAMIN (VITAMIN B-12) 1,000 MCG/ML VIAL IM SCH (09:00)
[2022-11-05] MEDS ORDERED: SOD FERRIC GLUC COMPLX/SUCROSE 62.5 MG/5 ML AMPUL IV SCH (09:00)
[2022-11-05] MEDS ORDERED: FAMOtidine 20 MG TABLET PO SCH ×2 (21:00)
[2022-11-08] MEDS ORDERED: CEFTOLOZANE/TAZOBACTAM 1.5 GM VIAL IV SCH (17:00)
[2022-11-11 09:09] LABS: HEMATOCRIT 41.3 % (36.0-45.00); HEMOGLOBIN 13.8 g/dL (12.0-15.00); MEAN CORPUSCULAR HEMOGLOBIN 27.2 pg (27.00-32.0); MEAN CORPUSCULAR HGB CONC 33.5 g/dl (32.0-36.0); PLATELET COUNT 291 K/uL (150-450); RED BLOOD COUNT 5.09 M/uL (4.00-6.00); RED CELL DISTRIBUTION WIDTH 16.8 % (11.5-14.5)
[2022-11-11 09:35] LABS: ALBUMIN 2.6 gm/dL (3.4-5.0); BILIRUBIN TOTAL 0.41 mg/dL (0.3-1.2); GLOBULINA 3.3 G/DL (2.4-3.5); MAGNESIUM 1.8 mg/dL (1.8-2.4); PHOSPHOROUS 2.8 mg/dL (2.5-4.9); POTASSIUM 3.5 mEq/L (3.5-5.1); TOTAL PROTEIN 5.9 gm/dL (6.4-8.2)
[2022-11-11 09:40] LABS: C-REACTIVE PROTEIN 3.88 MG/DL (0.00-0.29); CREATININE SERUM 0.26 mg/dL (0.55-1.02); GFR 251.22
[2022-11-18 09:12] LABS: HEMATOCRIT 38.5 % (36.0-45.00); HEMOGLOBIN 12.6 g/dL (12.0-15.00); MEAN CELL VOLUME 81.5 fL (80.00-100.00); MEAN CORPUSCULAR HEMOGLOBIN 26.7 pg (27.00-32.0); MEAN CORPUSCULAR HGB CONC 32.8 g/dl (32.0-36.0); PLATELET COUNT 213 K/uL (150-450); RED BLOOD COUNT 4.72 M/uL (4.00-6.00); RED CELL DISTRIBUTION WIDTH 17.7 % (11.5-14.5)
[2022-11-18 09:36] LABS: ALBUMIN 2.1 gm/dL (3.4-5.0); BILIRUBIN TOTAL 0.37 mg/dL (0.3-1.2); CALCIUM 8.3 mg/dL (8.5-10.1); GLOBULINA 2.8 G/DL (2.4-3.5); MAGNESIUM 1.7 mg/dL (1.8-2.4); PHOSPHOROUS 2.8 mg/dL (2.5-4.9); POTASSIUM 3.7 mEq/L (3.5-5.1); TOTAL PROTEIN 4.9 gm/dL (6.4-8.2)
[2022-11-18 09:48] LABS: C-REACTIVE PROTEIN 3.57 MG/DL (0.00-0.29); CREATININE SERUM 0.22 mg/dL (0.55-1.02); GFR 304.64
[2022-11-23] MEDS ORDERED: EMOLLIENTS 6 OZ BOTTLE TOP SCH (09:00)
[2022-11-24 19:21] LABS: HEMATOCRIT 38.7 % (36.0-45.00); HEMOGLOBIN 12.6 g/dL (12.0-15.00); MEAN CELL VOLUME 81.5 fL (80.00-100.00); MEAN CORPUSCULAR HEMOGLOBIN 26.6 pg (27.00-32.0); MEAN CORPUSCULAR HGB CONC 32.7 g/dl (32.0-36.0); PLATELET COUNT 274 K/uL (150-450); RED BLOOD COUNT 4.75 M/uL (4.00-6.00); RED CELL DISTRIBUTION WIDTH 17.9 % (11.5-14.5)
[2022-11-24 20:05] LABS: CALCIUM 8.8 mg/dL (8.5-10.1); GFR 240.51; MAGNESIUM 1.7 mg/dL (1.8-2.4); PHOSPHOROUS 3.1 mg/dL (2.5-4.9); POTASSIUM 3.46 mEq/L (3.5-5.1)
[2022-11-24 20:09] LABS: CREATININE SERUM 0.27 mg/dL (0.55-1.02)
[2022-11-25] MEDS ORDERED: MAGNESIUM SULFATE IN WATER 4 GM/100 ML PIGGYBACK IV ONE (13:45)
[2022-11-25] MEDS ORDERED: POTASSIUM CHLORIDE IN WATER 100 ML IV ONE (13:45)
[2022-12-03 06:29] LABS: HEMATOCRIT 32.4 % (36.0-45.00); HEMOGLOBIN 11.1 g/dL (12.0-15.00); MEAN CELL VOLUME 80.4 fL (80.00-100.00); MEAN CORPUSCULAR HEMOGLOBIN 27.5 pg (27.00-32.0); MEAN CORPUSCULAR HGB CONC 34.2 g/dl (32.0-36.0); PLATELET COUNT 241 K/uL (150-450); RED BLOOD COUNT 4.03 M/uL (4.00-6.00); RED CELL DISTRIBUTION WIDTH 18.1 % (11.5-14.5)
[2022-12-03 06:55] LABS: ALBUMIN 1.9 gm/dL (3.4-5.0); BILIRUBIN TOTAL 0.35 mg/dL (0.3-1.2); CALCIUM 8.4 mg/dL (8.5-10.1); CREATININE SERUM 0.3 mg/dL (0.55-1.02); GFR 212.98; GLOBULINA 3.1 G/DL (2.4-3.5)
[2022-12-03] MEDS ORDERED: CYANOCOBALAMIN (VITAMIN B-12) 1,000 MCG/ML VIAL IM SCH (09:00)
[2022-12-06] MEDS ORDERED: DEXTROSE 50 % IN WATER 0.5 G/ML DISP.SYRIN IV PRN (17:00)
[2022-12-06] MEDS ORDERED: COLLAGENASE CLOSTRIDIUM HIST. 30 GM TUBE TOP SCH (17:00)
[2022-12-06] MEDS ORDERED: EMOLLIENTS 6 OZ BOTTLE TOP SCH (17:00)
[2022-12-06] MEDS ORDERED: VITAMIN B COMPLEX 1 EACH PO SCH (17:00)
[2022-12-06] MEDS ORDERED: AMINO ACIDS/PROTEIN HYDROLYS 30 ML BLIST.PACK PO SCH (17:05)
[2022-12-06] MEDS ORDERED: hydrALAZINE HCL 20 MG VIAL IV PRN (17:15)
[2022-12-06] MEDS ORDERED: INSULIN LISPRO 300 UNIT/3 ML UNITS SUBCUTANEO PRN (17:15)
[2022-12-06] MEDS ORDERED: hydrALAZINE HCL 25 MG TABLET PO SCH (21:00)
[2022-12-06] MEDS ORDERED: METOPROLOL TARTRATE 50 MG TABLET PO SCH (21:00)
[2022-12-06] MEDS ORDERED: FAMOtidine 20 MG TABLET PO SCH (21:00)
[2022-12-07] MEDS ORDERED: CLOPIDOGREL BISULFATE 75 MG TABLET PO SCH (09:00)
[2022-12-07] MEDS ORDERED: AMLODIPINE BESYLATE 10 MG TABLET PO SCH (09:00)
[2022-12-07] MEDS ORDERED: IRON FUM,PS/FOLIC/BCOMP,C NO.9 1 CAP CAPSULE PO SCH (09:00)
[2022-12-07] MEDS ORDERED: ATORVASTATIN CALCIUM 40 MG TABLET PO SCH (09:00)
[2022-12-07] MEDS ORDERED: SOD FERRIC GLUC COMPLX/SUCROSE 62.5 MG/5 ML AMPUL IV SCH ×2 (09:00)
[2022-12-07] MEDS ORDERED: LACTOBACILLUS ACIDOPHILUS 1 CAP CAP PO SCH (17:05)
[2022-12-08] MEDS ORDERED: SOD FERRIC GLUC COMPLX/SUCROSE 62.5 MG/5 ML AMPUL IV SCH (09:00)
[2022-12-09 08:51] LABS: ALBUMIN 1.8 gm/dL (3.4-5.0); BILIRUBIN TOTAL 0.45 mg/dL (0.3-1.2); CALCIUM 8.5 mg/dL (8.5-10.1); GFR 289.41; GLOBULINA 3.5 G/DL (2.4-3.5); POTASSIUM 5.16 mEq/L (3.5-5.1); TOTAL PROTEIN 5.3 gm/dL (6.4-8.2)
[2022-12-09 09:12] LABS: CREATININE SERUM 0.23 mg/dL (0.55-1.02)
[2022-12-10 13:49] LABS: HEMATOCRIT 33.6 % (36.0-45.00); HEMOGLOBIN 11.2 g/dL (12.0-15.00); MEAN CELL VOLUME 81.6 fL (80.00-100.00); MEAN CORPUSCULAR HEMOGLOBIN 27.3 pg (27.00-32.0); MEAN CORPUSCULAR HGB CONC 33.4 g/dl (32.0-36.0); PLATELET COUNT 269 K/uL (150-450); RED BLOOD COUNT 4.11 M/uL (4.00-6.00)
[2022-12-12] MEDS ORDERED: Cyanocobalamin/Mecobalamin 1 TAB.SL SL SCH (13:59)
[2022-12-15 07:58] LABS: HEMATOCRIT 37.7 % (36.0-45.00); HEMOGLOBIN 12.6 g/dL (12.0-15.00); MEAN CORPUSCULAR HEMOGLOBIN 27.1 pg (27.00-32.0); MEAN CORPUSCULAR HGB CONC 33.4 g/dl (32.0-36.0); PLATELET COUNT 351 K/uL (150-450); RED BLOOD COUNT 4.65 M/uL (4.00-6.00); RED CELL DISTRIBUTION WIDTH 18.5 % (11.5-14.5)
[2022-12-18] MEDS ORDERED: VANCOMYCIN HCL 1,000 MG VIAL IV SCH (17:00)
[2022-12-18] MEDS ORDERED: METRONIDAZOLE/SODIUM CHLORIDE 100 ML IV SCH (17:00)
[2022-12-18] MEDS ORDERED: CEFTAZIDIME/AVIBACTAM 2.5 GM VIAL IV SCH (21:00)
[2022-12-19 05:34] LABS: HEMATOCRIT 35.1 % (36.0-45.00); MEAN CELL VOLUME 82.1 fL (80.00-100.00); MEAN CORPUSCULAR HEMOGLOBIN 27.6 pg (27.00-32.0); MEAN CORPUSCULAR HGB CONC 33.6 g/dl (32.0-36.0); PLATELET COUNT 270 K/uL (150-450); RED BLOOD COUNT 4.27 M/uL (4.00-6.00); RED CELL DISTRIBUTION WIDTH 18.4 % (11.5-14.5)
[2022-12-19 05:44] LABS: HEMOGLOBIN 11.8 g/dL (12.0-15.00)
[2022-12-19 05:57] LABS: ALBUMIN 1.8 gm/dL (3.4-5.0); BILIRUBIN TOTAL 0.37 mg/dL (0.3-1.2); C-REACTIVE PROTEIN 11.6 MG/DL (0.00-0.29); CREATININE SERUM 0.23 mg/dL (0.55-1.02); GFR 289.41; GLOBULINA 3.4 G/DL (2.4-3.5); MAGNESIUM 2.4 mg/dL (1.8-2.4); PHOSPHOROUS 3.4 mg/dL (2.5-4.9); POTASSIUM 4.21 mEq/L (3.5-5.1); TOTAL PROTEIN 5.2 gm/dL (6.4-8.2)
[2022-12-19 06:26] LABS: PH,URINE 5.5 (5.0-8.0); URINE APPEARANCE Turbid; URINE BILIRRUBIN Negative (NEGATIVE); URINE BLOOD Trace; URINE COLOR Yellow; URINE GLUCOSE Negative (NEGATIVE); URINE LEUKOCYTE Large; URINE NITRATE Positive; URINE PROTEIN 30 (NEGATIVE); URINE UROBILINOGEN 0.2 E.U./dl
[2022-12-19 06:30] LABS: URINE EPITHELIAL CELLS 24.9 uL (0.0-38.8); URINE RBC 34.4 uL (0.0-20.8); URINE WBC 4964.5 uL (0.0-23.2)
[2022-12-19 07:03] LABS: ERYTHROCYTE SEDIMENTATION RATE 99 mm/hr
[2022-12-19 07:22] LABS: URINE BACTERIA > 9821.5 uL (0.0-1933)
[2022-12-19 07:25] LABS: URINE SPERM A
[2022-12-19 07:26] LABS: URINE MUCUS SCANT
[2022-12-19] MEDS ORDERED: SOD FERRIC GLUC COMPLX/SUCROSE 62.5 MG/5 ML AMPUL IV SCH (15:49)
[2022-12-22] MEDS ORDERED: CYANOCOBALAMIN (VITAMIN B-12) 1,000 MCG/ML VIAL IM SCH (09:00)
[2022-12-22 15:51] LABS: HEMATOCRIT 38.3 % (36.0-45.00); HEMOGLOBIN 12.7 g/dL (12.0-15.00); MEAN CELL VOLUME 83.1 fL (80.00-100.00); MEAN CORPUSCULAR HEMOGLOBIN 27.6 pg (27.00-32.0); MEAN CORPUSCULAR HGB CONC 33.2 g/dl (32.0-36.0); PLATELET COUNT 341 K/uL (150-450); RED BLOOD COUNT 4.61 M/uL (4.00-6.00); RED CELL DISTRIBUTION WIDTH 18.8 % (11.5-14.5)
[2022-12-22 16:10] LABS: C-REACTIVE PROTEIN 9.74 MG/DL (0.00-0.29); CALCIUM 8.1 mg/dL (8.5-10.1); CREATININE SERUM 0.34 mg/dL (0.55-1.02); GFR 184.33; POTASSIUM 4.55 mEq/L (3.5-5.1)
[2022-12-23 09:31] LABS: URINE APPEARANCE Turbid; URINE BILIRRUBIN Negative (NEGATIVE); URINE BLOOD Trace; URINE COLOR Yellow; URINE GLUCOSE Negative (NEGATIVE); URINE LEUKOCYTE Large; URINE NITRATE Negative; URINE UROBILINOGEN 0.2 E.U./dl
[2022-12-23 09:35] LABS: URINE BACTERIA 1658.7 uL (0.0-1933); URINE EPITHELIAL CELLS 22.2 uL (0.0-38.8); URINE RBC 1922.4 uL (0.0-20.8)
[2022-12-23 10:00] LABS: URINE PROTEIN 100 (NEGATIVE); URINE WBC > 5548.3 uL (0.0-23.2); URINE YEAST MANY /hpf
[2022-12-29] MEDS ORDERED: VANCOMYCIN HCL 5 MG/ML REDILUIDO IV SCH (17:00)
[2022-12-30 07:35] LABS: ALBUMIN 1.4 gm/dL (3.4-5.0); ALKALINE PHOSPHATASE 75 U/L (50-136); ALT/SGPT 15 U/L (12-78); AST/SGOT 13 U/L (15-37); BILIRUBIN TOTAL 0.22 mg/dL (0.3-1.2); BLOOD UREA NITROGEN 15 mg/dL (7-18); CALCIUM 6.7 mg/dL (8.5-10.1); CARBON DIOXIDE 22 mEq/L (21-32); GLOBULINA 2.3 G/DL (2.4-3.5); GLUCOSE FASTING 129 mg/dL (65-100); OSMOLALITY SERUM 289 MOSM/KG (275-295); POTASSIUM 3.09 mEq/L (3.5-5.1); SODIUM 144 mmol/L (136-145); TOTAL PROTEIN 3.7 gm/dL (6.4-8.2)
[2022-12-30 08:19] LABS: ANION GAP 9 (10.0-20.0); BUN CREA RATIO 100 (7.0-25.0); C-REACTIVE PROTEIN 2.06 MG/DL (0.00-0.29); CHLORIDE 116 mmol/L (98-107); CREATININE SERUM < 0.15 mg/dL (0.55-1.02); GFR 473.97
[2022-12-30 08:21] LABS: PHOSPHOROUS 1.7 mg/dL (2.5-4.9)
[2022-12-30 10:02] LABS: HEMATOCRIT 34.9 % (36.0-45.00); HEMOGLOBIN 11.7 g/dL (12.0-15.00); MEAN CELL VOLUME 83.8 fL (80.00-100.00); MEAN CORPUSCULAR HEMOGLOBIN 28.1 pg (27.00-32.0); MEAN CORPUSCULAR HGB CONC 33.5 g/dl (32.0-36.0); PLATELET COUNT 164 K/uL (150-450); RED BLOOD COUNT 4.16 M/uL (4.00-6.00)
[2022-12-30] MEDS ORDERED: POTASSIUM PHOS,M-BASIC-D-BASIC 3 MM/ML VIAL IV NR (12:11)
[2022-12-30] MEDS ORDERED: POTASSIUM CHLORIDE IN WATER 100 ML IV ONE (20:45)
[2023-01-03] MEDS ORDERED: MEGESTROL ACETATE 400 MG/10 ML BLIST PACK PO SCH (09:00)
[2023-01-05 08:40] LABS: HEMATOCRIT 32.8 % (36.0-45.00); HEMOGLOBIN 10.8 g/dL (12.0-15.00); MEAN CELL VOLUME 85.5 fL (80.00-100.00); MEAN CORPUSCULAR HEMOGLOBIN 28.1 pg (27.00-32.0); MEAN CORPUSCULAR HGB CONC 32.9 g/dl (32.0-36.0); RED BLOOD COUNT 3.84 M/uL (4.00-6.00); RED CELL DISTRIBUTION WIDTH 20.7 % (11.5-14.5)
[2023-01-05 09:01] LABS: ALBUMIN 1.6 gm/dL (3.4-5.0); ALKALINE PHOSPHATASE 91 U/L (50-136); ALT/SGPT 14 U/L (12-78); ANION GAP 7 (10.0-20.0); AST/SGOT 18 U/L (15-37); BILIRUBIN TOTAL 0.35 mg/dL (0.3-1.2); BLOOD UREA NITROGEN 12 mg/dL (7-18); CALCIUM 7.7 mg/dL (8.5-10.1); CARBON DIOXIDE 22 mEq/L (21-32); CHLORIDE 115 mmol/L (98-107); GLOBULINA 2.7 G/DL (2.4-3.5); GLUCOSE FASTING 124 mg/dL (65-100); OSMOLALITY SERUM 281 MOSM/KG (275-295); SODIUM 140 mmol/L (136-145); TOTAL PROTEIN 4.3 gm/dL (6.4-8.2)
[2023-01-05 09:03] LABS: PLATELET COUNT 164 K/uL (150-450)
[2023-01-05 09:07] LABS: BUN CREA RATIO 80 (7.0-25.0); CREATININE SERUM < 0.15 mg/dL (0.55-1.02); GFR 473.97
[2023-01-07 10:54] LABS: ALBUMIN 1.9 gm/dL (3.4-5.0); BILIRUBIN TOTAL 0.36 mg/dL (0.3-1.2); CALCIUM 8.6 mg/dL (8.5-10.1); GLOBULINA 3.4 G/DL (2.4-3.5); MAGNESIUM 2.3 mg/dL (1.8-2.4); PHOSPHOROUS 2.8 mg/dL (2.5-4.9); POTASSIUM 3.72 mEq/L (3.5-5.1); TOTAL PROTEIN 5.3 gm/dL (6.4-8.2)
[2023-01-07 11:06] LABS: C-REACTIVE PROTEIN 4.81 MG/DL (0.00-0.29); CREATININE SERUM 0.21 mg/dL (0.55-1.02); GFR 321.42
[2023-01-09 06:55] LABS: HEMATOCRIT 33.7 % (36.0-45.00); HEMOGLOBIN 11.1 g/dL (12.0-15.00); MEAN CELL VOLUME 86.5 fL (80.00-100.00); MEAN CORPUSCULAR HEMOGLOBIN 28.6 pg (27.00-32.0); MEAN CORPUSCULAR HGB CONC 33.1 g/dl (32.0-36.0); PLATELET COUNT 238 K/uL (150-450); RED BLOOD COUNT 3.89 M/uL (4.00-6.00); RED CELL DISTRIBUTION WIDTH 20.6 % (11.5-14.5)
[2023-01-09 06:58] LABS: ALBUMIN 1.4 gm/dL (3.4-5.0); BILIRUBIN TOTAL 0.23 mg/dL (0.3-1.2); CALCIUM 7.7 mg/dL (8.5-10.1); GFR 321.42; GLOBULINA 2.5 G/DL (2.4-3.5); POTASSIUM 3.92 mEq/L (3.5-5.1); TOTAL PROTEIN 3.9 gm/dL (6.4-8.2)
[2023-01-09 07:19] LABS: CREATININE SERUM 0.21 mg/dL (0.55-1.02)
[2023-01-13 08:11] LABS: BILIRUBIN TOTAL 0.42 mg/dL (0.3-1.2); CALCIUM 8.1 mg/dL (8.5-10.1); GLOBULINA 3.3 G/DL (2.4-3.5); PHOSPHOROUS 3.2 mg/dL (2.5-4.9); POTASSIUM 4.07 mEq/L (3.5-5.1); TOTAL PROTEIN 5.3 gm/dL (6.4-8.2)
[2023-01-13 08:12] LABS: C-REACTIVE PROTEIN 2.49 MG/DL (0.00-0.29); CREATININE SERUM 0.21 mg/dL (0.55-1.02); GFR 321.42
[2023-01-13 12:01] LABS: HEMATOCRIT 41.1 % (36.0-45.00); HEMOGLOBIN 13.8 g/dL (12.0-15.00); MEAN CELL VOLUME 85.8 fL (80.00-100.00); MEAN CORPUSCULAR HEMOGLOBIN 28.9 pg (27.00-32.0); MEAN CORPUSCULAR HGB CONC 33.7 g/dl (32.0-36.0); PLATELET COUNT 346 K/uL (150-450); RED BLOOD COUNT 4.79 M/uL (4.00-6.00); RED CELL DISTRIBUTION WIDTH 20.7 % (11.5-14.5)
[2023-01-14] MEDS ORDERED: ONDANSETRON HCL 2 MG/ML VIAL IV PRN (09:15)
[2023-01-14] MEDS ORDERED: 0.9 % SODIUM CHLORIDE 1,000 ML IV SCH (14:30)
[2023-01-15] MEDS ORDERED: PANTOPRAZOLE SODIUM 40 MG TABLET.DR PO SCH (07:30)
[2023-01-15 09:53] LABS: HEMATOCRIT 37.9 % (36.0-45.00); HEMOGLOBIN 12.6 g/dL (12.0-15.00); MEAN CELL VOLUME 86.2 fL (80.00-100.00); MEAN CORPUSCULAR HEMOGLOBIN 28.7 pg (27.00-32.0); MEAN CORPUSCULAR HGB CONC 33.3 g/dl (32.0-36.0); PLATELET COUNT 340 K/uL (150-450); RED BLOOD COUNT 4.39 M/uL (4.00-6.00); RED CELL DISTRIBUTION WIDTH 20.4 % (11.5-14.5)
[2023-01-15 10:40] LABS: ALBUMIN 1.5 gm/dL (3.4-5.0); BILIRUBIN TOTAL 0.55 mg/dL (0.3-1.2); CALCIUM 8.3 mg/dL (8.5-10.1); CREATININE SERUM 0.49 mg/dL (0.55-1.02); GFR 120.91; GLOBULINA 3.2 G/DL (2.4-3.5); TOTAL PROTEIN 4.7 gm/dL (6.4-8.2)
[2023-01-15 10:45] LABS: POTASSIUM 4.41 mEq/L (3.5-5.1)
[2023-01-15 15:34] LABS: URINE BACTERIA 641.9 uL (0.0-1933); URINE EPITHELIAL CELLS 11.7 uL (0.0-38.8); URINE RBC 364.5 uL (0.0-20.8); URINE WBC 159.3 uL (0.0-23.2)
[2023-01-15 15:44] LABS: PH,URINE 5.5; URINE BLOOD NEGATIVE; URINE GLUCOSE NEGATIVE (NEGATIVE); URINE LEUKOCYTE TRACE; URINE NITRATE POSITIVE; URINE PROTEIN 30 (NEGATIVE)
[2023-01-15 15:53] LABS: URINE BILIRRUBIN MODERATE (NEGATIVE)
[2023-01-15 15:54] LABS: URINE APPEARANCE SL CLOUDY; URINE COLOR YELLOW
[2023-01-15 15:57] LABS: URINE YEAST FEW /hpf
[2023-01-15] MEDS ORDERED: ANIDULAFUNGIN 100 MG VIAL IV ONE (17:00)
[2023-01-15] MEDS ORDERED: POLYETHYLENE GLYCOL 3350 17 GM BLIST.PACK PO SCH (17:00)
[2023-01-15] MEDS ORDERED: METRONIDAZOLE/SODIUM CHLORIDE 100 ML IV SCH (17:00)
[2023-01-15] MEDS ORDERED: CEFTAZIDIME/AVIBACTAM 2.5 GM VIAL IV SCH (21:00)
[2023-01-15 22:41] LABS: CKMB 1.8 NG/ML (0.5-3.6)
[2023-01-16 04:04] LABS: HEMATOCRIT 38.3 % (36.0-45.00); HEMOGLOBIN 12.9 g/dL (12.0-15.00); MEAN CELL VOLUME 86.1 fL (80.00-100.00); MEAN CORPUSCULAR HGB CONC 33.6 g/dl (32.0-36.0); PLATELET COUNT 351 K/uL (150-450); RED BLOOD COUNT 4.45 M/uL (4.00-6.00); RED CELL DISTRIBUTION WIDTH 20.6 % (11.5-14.5)
[2023-01-16 04:19] LABS: ALBUMIN 1.5 gm/dL (3.4-5.0); BILIRUBIN TOTAL 0.63 mg/dL (0.3-1.2); GFR 126.86; GLOBULINA 3.1 G/DL (2.4-3.5); MAGNESIUM 2.2 mg/dL (1.8-2.4); PHOSPHOROUS 4.1 mg/dL (2.5-4.9); POTASSIUM 4.56 mEq/L (3.5-5.1); TOTAL PROTEIN 4.6 gm/dL (6.4-8.2)
[2023-01-16 04:35] LABS: CREATININE SERUM 0.47 mg/dL (0.55-1.02)
[2023-01-16 11:51] LABS: PLATELET ESTIMATE NORMAL (NORMAL)
[2023-01-16] MEDS ORDERED: AA 4.25%/CAL/LYTES/DEXT 5% 1,000 ML PERIFERAL SCH (17:00)
[2023-01-16] MEDS ORDERED: ANIDULAFUNGIN 100 MG VIAL IV SCH (17:00)
[2023-01-16 18:14] LABS: CALCIUM 8.4 mg/dL (8.5-10.1); CHOL HDL RATIO 2.4 (0-5.0); CREATININE SERUM 0.52 mg/dL (0.55-1.02); GFR 112.89; POTASSIUM 5.19 mEq/L (3.5-5.1)
[2023-01-17] MEDS ORDERED: LIDOCAINE HCL 100 MG/10ML VIAL ONE (21:38)
[2023-01-19 07:41] LABS: MEAN CELL VOLUME 87.1 fL (80.00-100.00); MEAN CORPUSCULAR HEMOGLOBIN 28.3 pg (27.00-32.0); MEAN CORPUSCULAR HGB CONC 32.5 g/dl (32.0-36.0); PLATELET COUNT 254 K/uL (150-450); RED CELL DISTRIBUTION WIDTH 20.2 % (11.5-14.5)
[2023-01-19 07:58] LABS: INR 1.11; PARTIAL THROMBOPLASTIN TIME 28.8 SECONDS (22.0-34.0); PROTHROMBIN TIME 11.6 SECONDS (9.0-11.5)
[2023-01-19 08:11] LABS: BILIRUBIN TOTAL 0.5 mg/dL (0.3-1.2); CALCIUM 7.8 mg/dL (8.5-10.1); CREATININE SERUM 0.51 mg/dL (0.55-1.02); GFR 115.45; GLOBULINA 2.7 G/DL (2.4-3.5); MAGNESIUM 2.1 mg/dL (1.8-2.4); PHOSPHOROUS 3.5 mg/dL (2.5-4.9); POTASSIUM 3.73 mEq/L (3.5-5.1); TOTAL PROTEIN 3.7 gm/dL (6.4-8.2)
[2023-01-19 08:20] LABS: BILIRUBIN TOTAL 0.49 mg/dL (0.3-1.2); BILIRUBIN,CONJUGATED 0.22 mg/dL (0.0-0.2); BILIRUBIN,UNCONJUGATED 0.27 mg/dL (0.0-0.6); CALCIUM 7.8 mg/dL (8.5-10.1); CREATININE SERUM 0.49 mg/dL (0.55-1.02); GFR 120.91; GLOBULINA 2.7 G/DL (2.4-3.5); MAGNESIUM 2.1 mg/dL (1.8-2.4); POTASSIUM 3.71 mEq/L (3.5-5.1); TOTAL PROTEIN 3.7 gm/dL (6.4-8.2)
[2023-01-19 09:17] LABS: UREA CLEARANCE 6.1 ML/MIN
[2023-01-19] MEDS ORDERED: ALBUMIN HUMAN 5% 0.05GM/ML (250ML) VIAL IV SCH (13:41)
[2023-01-19] MEDS ORDERED: PANTOPRAZOLE SODIUM 40 MG/VIAL VIAL IV ONE (13:45)
[2023-01-19] MEDS ORDERED: PANTOPRAZOLE SODIUM 40 MG/VIAL VIAL IV SCH (13:45)
[2023-01-19] MEDS ORDERED: ALBUMIN HUMAN-25 0.25GM/ML (50ML) VIAL IV SCH (14:43)
[2023-01-19 15:22] LABS: HEMATOCRIT 37.4 % (36.0-45.00); HEMOGLOBIN 11.9 g/dL (12.0-15.00); MEAN CELL VOLUME 87.9 fL (80.00-100.00); MEAN CORPUSCULAR HEMOGLOBIN 27.8 pg (27.00-32.0); MEAN CORPUSCULAR HGB CONC 31.7 g/dl (32.0-36.0); PLATELET COUNT 234 K/uL (150-450); RED BLOOD COUNT 4.26 M/uL (4.00-6.00); RED CELL DISTRIBUTION WIDTH 20.4 % (11.5-14.5)
[2023-01-19] MEDS ORDERED: FUROsemide 20 MG/2 ML VIAL IV SCH (17:00)
[2023-01-19] MEDS ORDERED: FAMOTIDINE/PF 20 MG in 0.9 % SODIUM CHLORIDE 100 ML IV SCH (21:00)
[2023-01-20] MEDS ORDERED: SOD FERRIC GLUC COMPLX/SUCROSE 62.5 MG in 0.9 % SODIUM CHLORIDE 50 ML IV SCH (09:00)
[2023-01-20] MEDS ORDERED: LIDOCAINE HCL 100 MG/10ML VIAL ONE (18:52)
[2023-01-20] MEDS ORDERED: REMDESIVIR 100 MG VIAL IV SCH (20:16)
[2023-01-20] MEDS ORDERED: REMDESIVIR 100 MG VIAL IV ONE (20:30)
[2023-01-20 22:37] LABS: ABG PH 7.447 (7.35-7.45); ABG PO2 71.7 mmHg (80-100); ABG pCO2 23.7 mmHg (35-45); BASE EXCESS -5.9 mmol/l; SaO2 94.7 %; Tco2 16.7 mmol/l
[2023-01-20 22:38] LABS: allen test SATISFACTORY; o2 21 %; puncture site RADIAL LEFT
[2023-01-21 08:33] LABS: ABG PH 7.461 (7.35-7.45); ABG PO2 73.7 mmHg (80-100); ABG pCO2 21.2 mmHg (35-45); BASE EXCESS -6.5 mmol/l; BICARBONATE 14.8 mmol/l (23-25); SaO2 95.3 %; Tco2 15.4 mmol/l
[2023-01-21 08:34] LABS: allen test SATISFACTORY; o2 32 %; puncture site RADIAL RIGHT
[2023-01-21 09:03] LABS: HEMATOCRIT 27.7 % (36.0-45.00); MEAN CELL VOLUME 86.1 fL (80.00-100.00); MEAN CORPUSCULAR HGB CONC 32.5 g/dl (32.0-36.0); RED BLOOD COUNT 3.22 M/uL (4.00-6.00); RED CELL DISTRIBUTION WIDTH 20.3 % (11.5-14.5)
[2023-01-21 09:33] LABS: MEAN CORPUSCULAR HEMOGLOBIN 27.9 pg (27.00-32.0)
[2023-01-21 09:34] LABS: PLATELET COUNT 155 K/uL (150-450)
[2023-01-21 09:40] LABS: ALBUMIN 1.8 gm/dL (3.4-5.0); BILIRUBIN TOTAL 0.45 mg/dL (0.3-1.2); CALCIUM 7.4 mg/dL (8.5-10.1); CREATININE SERUM 0.5 mg/dL (0.55-1.02); GFR 118.12; GLOBULINA 2.2 G/DL (2.4-3.5)
[2023-01-21 10:04] LABS: POTASSIUM 2.62 mEq/L (3.5-5.1)
[2023-01-21] MEDS ORDERED: POTASSIUM CHLORIDE IN WATER 40 MEQ/100 ML PIGGYBAG IV STA (10:15)
[2023-01-21 21:04] LABS: PLEURAL FLUID APPEARANCE CLOUDY; PLEURAL FLUID COLOR YELLOW; TP PLEURAL FLUID 1.3 g/dl
[2023-01-21 22:06] LABS: POLYMORPHONUCLEAR 7 %
[2023-01-21 22:07] LABS: MONONUCLEAR 93 %
[2023-01-22 08:42] LABS: ABG PH 7.455 (7.35-7.45); ABG PO2 72.9 mmHg (80-100); ABG pCO2 23.6 mmHg (35-45); BASE EXCESS -5.5 mmol/l; BICARBONATE 16.2 mmol/l (23-25); SaO2 95.1 %
[2023-01-22 08:55] LABS: allen test SATISFACTORY; o2 21 %; puncture site RADIAL LEFT
[2023-01-22] MEDS ORDERED: PANTOPRAZOLE SODIUM 40 MG/VIAL VIAL IV SCH (09:00)
[2023-01-23 09:22] LABS: HEMATOCRIT 29.6 % (36.0-45.00); MEAN CELL VOLUME 85.3 fL (80.00-100.00); MEAN CORPUSCULAR HEMOGLOBIN 28.8 pg (27.00-32.0); MEAN CORPUSCULAR HGB CONC 33.8 g/dl (32.0-36.0); RED BLOOD COUNT 3.47 M/uL (4.00-6.00); RED CELL DISTRIBUTION WIDTH 20.7 % (11.5-14.5)
[2023-01-23 09:23] LABS: PLATELET COUNT 101 K/uL (150-450)
[2023-01-23 09:50] LABS: ALBUMIN 1.6 gm/dL (3.4-5.0); BILIRUBIN TOTAL 0.38 mg/dL (0.3-1.2); CALCIUM 7.2 mg/dL (8.5-10.1); CREATININE SERUM 0.4 mg/dL (0.55-1.02); GFR 152.81; GLOBULINA 2.2 G/DL (2.4-3.5); MAGNESIUM 1.8 mg/dL (1.8-2.4); TOTAL PROTEIN 3.8 gm/dL (6.4-8.2)
[2023-01-23 09:55] LABS: PROCALCITONIN 0.686 ng/ml (0.020-0.080)
[2023-01-23 09:58] LABS: CORTISOL 32.12 ug/dl
[2023-01-23 10:14] LABS: C-REACTIVE PROTEIN 16.1 MG/DL (0.00-0.29)
[2023-01-23 10:18] LABS: POTASSIUM 2.48 mEq/L (3.5-5.1)
[2023-01-23] MEDS ORDERED: POTASSIUM PHOS,M-BASIC-D-BASIC 3 MM/ML VIAL IV NR (12:00)
[2023-01-23] MEDS ORDERED: POTASSIUM CHLORIDE IN WATER 40 MEQ/100 ML PIGGYBAG IV ONE (12:13)
[2023-01-23 15:49] LABS: ob POSITIVE (NEGATIVE)
[2023-01-24] MEDS ORDERED: SPIRONOLACTONE 25 MG TABLET PO SCH (17:17)
[2023-01-24] MEDS ORDERED: POTASSIUM CHLORIDE IN WATER 100 ML IV ONE (17:30)
[2023-01-25 07:33] LABS: ALBUMIN 1.3 gm/dL (3.4-5.0); CALCIUM 7.3 mg/dL (8.5-10.1); CREATININE SERUM 0.48 mg/dL (0.55-1.02); GFR 123.82; MAGNESIUM 1.8 mg/dL (1.8-2.4); PHOSPHOROUS 2.6 mg/dL (2.5-4.9); POTASSIUM 3.37 mEq/L (3.5-5.1)
[2023-01-25] MEDS ORDERED: POTASSIUM CHLORIDE IN WATER 100 ML IV ONE (11:30)
[2023-01-26 08:47] LABS: INR 1.2; PROTHROMBIN TIME 12.4 SECONDS (9.0-11.5)
[2023-01-26 08:51] LABS: MEAN CELL VOLUME 86.6 fL (80.00-100.00); MEAN CORPUSCULAR HEMOGLOBIN 28.6 pg (27.00-32.0); MEAN CORPUSCULAR HGB CONC 33.1 g/dl (32.0-36.0); RED BLOOD COUNT 3.46 M/uL (4.00-6.00); RED CELL DISTRIBUTION WIDTH 20.2 % (11.5-14.5)
[2023-01-26 08:52] LABS: ALBUMIN 1.3 gm/dL (3.4-5.0); BILIRUBIN TOTAL 0.4 mg/dL (0.3-1.2); BILIRUBIN,CONJUGATED 0.15 mg/dL (0.0-0.2); BILIRUBIN,UNCONJUGATED 0.25 mg/dL (0.0-0.6); CALCIUM 7.6 mg/dL (8.5-10.1); CHOL HDL RATIO 3.7 (0-5.0); CREATININE SERUM 0.48 mg/dL (0.55-1.02); GFR 123.82; GLOBULINA 2.4 G/DL (2.4-3.5); MAGNESIUM 1.8 mg/dL (1.8-2.4); POTASSIUM 3.61 mEq/L (3.5-5.1); TOTAL PROTEIN 3.7 gm/dL (6.4-8.2)
[2023-01-26 08:55] LABS: HEMOGLOBIN 9.9 g/dL (12.0-15.00); PLATELET COUNT 74 K/uL (150-450)
[2023-01-26 09:12] LABS: UREA CLEARANCE 9.3 ML/MIN
[2023-01-26] MEDS ORDERED: FLUCONAZOLE IN NACL,ISO-OSM 400 MG/200 ML PIGGYBAG IV ONE (11:30)
[2023-01-27 06:33] LABS: HEMATOCRIT 27.9 % (36.0-45.00); HEMOGLOBIN 9.4 g/dL (12.0-15.00); MEAN CELL VOLUME 86.3 fL (80.00-100.00); MEAN CORPUSCULAR HGB CONC 33.6 g/dl (32.0-36.0); RED BLOOD COUNT 3.23 M/uL (4.00-6.00); RED CELL DISTRIBUTION WIDTH 20.1 % (11.5-14.5)
[2023-01-27 06:59] LABS: PLATELET COUNT 82 K/uL (150-450)
[2023-01-27 07:39] LABS: MANUAL PLATELET COUNT 146
[2023-01-27] MEDS ORDERED: FLUCONAZOLE IN NACL,ISO-OSM 400 MG/200 ML PIGGYBAG IV SCH (12:00)
[2023-01-27] MEDS ORDERED: VANCOMYCIN HCL 1,000 MG in 0.9 % SODIUM CHLORIDE 250 ML IV SCH (13:00)
[2023-01-28] MEDS ORDERED: SOD FERRIC GLUC COMPLX/SUCROSE 62.5 MG/5 ML AMPUL IV SCH (13:35)
[2023-01-28] MEDS ORDERED: PANTOPRAZOLE SODIUM 40 MG/VIAL VIAL IV SCH (13:36)
[2023-01-28] MEDS ORDERED: MIDAZOLAM HCL 2 MG/2 ML VIAL IV PUSH ONE (15:00)
[2023-01-28] MEDS ORDERED: fentaNYL CITRATE 50 MCG/ML AMPUL IV PUSH ONE (15:00)
[2023-01-28] MEDS ORDERED: MIDAZOLAM HCL 2 MG/2 ML VIAL IV ONE (17:15)
[2023-01-29 06:48] LABS: HEMATOCRIT 25.2 % (36.0-45.00); MEAN CELL VOLUME 85.4 fL (80.00-100.00); MEAN CORPUSCULAR HGB CONC 34.6 g/dl (32.0-36.0); RED BLOOD COUNT 2.95 M/uL (4.00-6.00); RED CELL DISTRIBUTION WIDTH 19.9 % (11.5-14.5)
[2023-01-29 06:59] LABS: HEMOGLOBIN 8.7 g/dL (12.0-15.00); MEAN CORPUSCULAR HEMOGLOBIN 29.4 pg (27.00-32.0); PLATELET COUNT 65 K/uL (150-450)
[2023-01-29 07:28] LABS: ALBUMIN 1.3 gm/dL (3.4-5.0); BILIRUBIN TOTAL 0.32 mg/dL (0.3-1.2); CALCIUM 7.6 mg/dL (8.5-10.1); CREATININE SERUM 0.49 mg/dL (0.55-1.02); GFR 120.91; GLOBULINA 2.5 G/DL (2.4-3.5); MAGNESIUM 1.8 mg/dL (1.8-2.4); PHOSPHOROUS 2.4 mg/dL (2.5-4.9); POTASSIUM 3.02 mEq/L (3.5-5.1); TOTAL PROTEIN 3.8 gm/dL (6.4-8.2)
[2023-01-29 07:32] LABS: C-REACTIVE PROTEIN 6.42 MG/DL (0.00-0.29)
[2023-01-29] MEDS ORDERED: POTASSIUM CHLORIDE IN WATER 100 ML IV ONE (08:00)
[2023-01-29] MEDS ORDERED: FUROsemide 20 MG/2 ML VIAL IV SCH ×2 (10:00→10:15)
[2023-01-29] MEDS ORDERED: POTASSIUM PHOS,M-BASIC-D-BASIC 15 MM in 0.9 % SODIUM CHLORIDE 250 ML IV ONE (11:00)
[2023-01-31 08:27] LABS: HEMATOCRIT 37.9 % (36.0-45.00); HEMOGLOBIN 12.6 g/dL (12.0-15.00); MEAN CELL VOLUME 86.8 fL (80.00-100.00); MEAN CORPUSCULAR HEMOGLOBIN 28.9 pg (27.00-32.0); MEAN CORPUSCULAR HGB CONC 33.3 g/dl (32.0-36.0); RED BLOOD COUNT 4.37 M/uL (4.00-6.00); RED CELL DISTRIBUTION WIDTH 16.6 % (11.5-14.5)
[2023-01-31 08:28] LABS: HEMATOCRIT 37.5 % (36.0-45.00); HEMOGLOBIN 12.5 g/dL (12.0-15.00); MEAN CELL VOLUME 86.8 fL (80.00-100.00); MEAN CORPUSCULAR HGB CONC 33.4 g/dl (32.0-36.0); RED BLOOD COUNT 4.32 M/uL (4.00-6.00); RED CELL DISTRIBUTION WIDTH 17.2 % (11.5-14.5)
[2023-01-31 08:51] LABS: PLATELET COUNT 92 K/uL (150-450); PLATELET COUNT 94 K/uL (150-450)
[2023-01-31 16:28] LABS: HEMATOCRIT 31.3 % (36.0-45.00); HEMOGLOBIN 10.8 g/dL (12.0-15.00); MEAN CELL VOLUME 87.2 fL (80.00-100.00); MEAN CORPUSCULAR HGB CONC 34.4 g/dl (32.0-36.0); RED BLOOD COUNT 3.59 M/uL (4.00-6.00); RED CELL DISTRIBUTION WIDTH 17.1 % (11.5-14.5)
[2023-01-31 16:29] LABS: PLATELET COUNT 80 K/uL (150-450)
[2023-02-02 07:34] LABS: ALBUMIN 1.6 gm/dL (3.4-5.0); ALT/SGPT 21 U/L (12-78); AST/SGOT 20 U/L (15-37); BILIRUBIN TOTAL 0.41 mg/dL (0.3-1.2); BILIRUBIN,CONJUGATED < 0.10 mg/dL (0.0-0.2); BILIRUBIN,UNCONJUGATED 0.31 mg/dL (0.0-0.6); BLOOD UREA NITROGEN 31 mg/dL (7-18); BUN CREA RATIO 84 (7.0-25.0); CALCIUM 7.8 mg/dL (8.5-10.1); CARBON DIOXIDE 27 mEq/L (21-32); CHOL HDL RATIO 5.2 (0-5.0); CHOLESTEROL 131 mg/dL (0-200); CREATININE SERUM 0.37 mg/dL (0.55-1.02); GLOBULINA 2.6 G/DL (2.4-3.5); GLUCOSE FASTING 185 mg/dL (65-100); HDL 25 mg/dl (40-60); LDL 61 mg/dl (0-130); POTASSIUM 3.11 mEq/L (3.5-5.1); TOTAL IRON BINDING CAPACITY 109 ug/dl (250-450); TOTAL PROTEIN 4.2 gm/dL (6.4-8.2); VLDL 45 (0-39)
[2023-02-02 08:23] LABS: ANION GAP 12 (10.0-20.0); CHLORIDE 119 mmol/L (98-107); OSMOLALITY SERUM 319 MOSM/KG (275-295); TRIGLYCERIDES 226 mg/dL (0-150)
[2023-02-02 08:24] LABS: ALKALINE PHOSPHATASE 221 U/L (50-136); SODIUM 155 mmol/L (136-145)
[2023-02-02 08:39] LABS: HEMATOCRIT 33.4 % (36.0-45.00); HEMOGLOBIN 11.6 g/dL (12.0-15.00); MEAN CELL VOLUME 85.6 fL (80.00-100.00); MEAN CORPUSCULAR HEMOGLOBIN 29.7 pg (27.00-32.0); MEAN CORPUSCULAR HGB CONC 34.7 g/dl (32.0-36.0); RED CELL DISTRIBUTION WIDTH 16.7 % (11.5-14.5)
[2023-02-02 08:49] LABS: PLATELET COUNT 118 K/uL (150-450)
[2023-02-02 09:06] LABS: INR 1.01; PROTHROMBIN TIME 10.6 SECONDS (9.0-11.5)
[2023-02-02 09:15] LABS: PARTIAL THROMBOPLASTIN TIME 24.3 SECONDS (22.0-34.0)
[2023-02-02 09:45] LABS: UREA CLEARANCE 16.4 ML/MIN
[2023-02-02] MEDS ORDERED: POTASSIUM CHLORIDE IN WATER 100 ML IV ONE (09:45)
[2023-02-02] MEDS ORDERED: MAGNESIUM SULFATE IN WATER 4 GM/100 ML PIGGYBACK IV ONE (09:45)
[2023-02-02] MEDS ORDERED: MAGNESIUM SULFATE IN WATER 2 GM/50 ML PIGGYBAG IV ONE (17:15)
[2023-02-02] MEDS ORDERED: FUROsemide 20 MG/2 ML VIAL IV SCH (21:00)
[2023-02-03 08:26] LABS: ALBUMIN 1.6 gm/dL (3.4-5.0); CALCIUM 7.8 mg/dL (8.5-10.1); CREATININE SERUM 0.3 mg/dL (0.55-1.02); GFR 212.98; MAGNESIUM 2.6 mg/dL (1.8-2.4); PHOSPHOROUS 2.5 mg/dL (2.5-4.9); POTASSIUM 3.3 mEq/L (3.5-5.1)
[2023-02-04] MEDS ORDERED: PANTOPRAZOLE SODIUM 40 MG TABLET.DR PO SCH (09:00)
[2023-02-05 06:52] LABS: HEMATOCRIT 32.3 % (36.0-45.00); MEAN CELL VOLUME 87.9 fL (80.00-100.00); MEAN CORPUSCULAR HGB CONC 33.3 g/dl (32.0-36.0); RED BLOOD COUNT 3.67 M/uL (4.00-6.00); RED CELL DISTRIBUTION WIDTH 16.4 % (11.5-14.5)
[2023-02-05 06:56] LABS: ALBUMIN 1.5 gm/dL (3.4-5.0); BILIRUBIN TOTAL 0.27 mg/dL (0.3-1.2); CALCIUM 7.9 mg/dL (8.5-10.1); CREATININE SERUM 0.31 mg/dL (0.55-1.02); GFR 205.07; GLOBULINA 2.7 G/DL (2.4-3.5); MAGNESIUM 2.3 mg/dL (1.8-2.4); PHOSPHOROUS 3.2 mg/dL (2.5-4.9); POTASSIUM 3.63 mEq/L (3.5-5.1); TOTAL PROTEIN 4.2 gm/dL (6.4-8.2)
[2023-02-05 07:18] LABS: HEMOGLOBIN 10.7 g/dL (12.0-15.00); MEAN CORPUSCULAR HEMOGLOBIN 29.1 pg (27.00-32.0); PLATELET COUNT 121 K/uL (150-450)
[2023-02-05 09:02] LABS: C-REACTIVE PROTEIN 12.4 MG/DL (0.00-0.29)
[2023-02-06 06:09] LABS: URINE APPEARANCE Cloudy; URINE BILIRRUBIN Negative (NEGATIVE); URINE BLOOD Moderate; URINE COLOR Yellow; URINE GLUCOSE Negative (NEGATIVE); URINE LEUKOCYTE Moderate; URINE NITRATE Negative; URINE PROTEIN 30 (NEGATIVE); URINE UROBILINOGEN 0.2 E.U./dl
[2023-02-06 06:13] LABS: URINE BACTERIA 95.5 uL (0.0-1933); URINE EPITHELIAL CELLS 25.2 uL (0.0-38.8); URINE RBC 76.4 uL (0.0-20.8); URINE WBC 117.4 uL (0.0-23.2)
[2023-02-06 06:25] LABS: URINE CRYSTALS NEGATIVE /HPF; URINE YEAST MODERATE /hpf
[2023-02-06] MEDS ORDERED: FUROsemide 20 MG/2 ML VIAL IV SCH (09:00)
[2023-02-06] MEDS ORDERED: AMINO ACIDS/PROTEIN HYDROLYS 30 ML BLIST.PACK PO SCH (17:00)
[2023-02-06] MEDS ORDERED: AMINO ACIDS 1 EACH TABLET PO SCH (21:00)
[2023-02-09 07:23] LABS: HEMATOCRIT 29.4 % (36.0-45.00); HEMOGLOBIN 9.9 g/dL (12.0-15.00); MEAN CELL VOLUME 87.1 fL (80.00-100.00); MEAN CORPUSCULAR HEMOGLOBIN 29.3 pg (27.00-32.0); MEAN CORPUSCULAR HGB CONC 33.7 g/dl (32.0-36.0); PLATELET COUNT 195 K/uL (150-450); RED BLOOD COUNT 3.37 M/uL (4.00-6.00); RED CELL DISTRIBUTION WIDTH 16.1 % (11.5-14.5)
[2023-02-09 07:27] LABS: ERYTHROCYTE SEDIMENTATION RATE 70 mm/hr
[2023-02-09 08:35] LABS: ALBUMIN 1.4 gm/dL (3.4-5.0); BILIRUBIN TOTAL 0.38 mg/dL (0.3-1.2); CALCIUM 7.9 mg/dL (8.5-10.1); GLOBULINA 2.8 G/DL (2.4-3.5); POTASSIUM 5.03 mEq/L (3.5-5.1); TOTAL PROTEIN 4.2 gm/dL (6.4-8.2)
[2023-02-09 08:39] LABS: C-REACTIVE PROTEIN 11.1 MG/DL (0.00-0.29); CREATININE SERUM 0.2 mg/dL (0.55-1.02); GFR 340.06
[2023-02-09 15:16] LABS: INR 1.02; PARTIAL THROMBOPLASTIN TIME 23.1 SECONDS (22.0-34.0); PROTHROMBIN TIME 10.7 SECONDS (9.0-11.5)
[2023-02-09 15:35] LABS: ALBUMIN 1.5 gm/dL (3.4-5.0); ALKALINE PHOSPHATASE 331 U/L (50-136); ALT/SGPT 44 U/L (12-78); AST/SGOT 29 U/L (15-37); BILIRUBIN TOTAL 0.26 mg/dL (0.3-1.2); BILIRUBIN,CONJUGATED < 0.10 mg/dL (0.0-0.2); BILIRUBIN,UNCONJUGATED 0.16 mg/dL (0.0-0.6); CHOL HDL RATIO 3.7 (0-5.0); CHOLESTEROL 115 mg/dL (0-200); HDL 31 mg/dl (40-60); LDL 44 mg/dl (0-130); TOTAL PROTEIN 4.4 gm/dL (6.4-8.2); TRIGLYCERIDES 200 mg/dL (0-150); VLDL 40 (0-39)
[2023-02-09 15:43] LABS: TOTAL IRON BINDING CAPACITY 108 ug/dl (250-450)
[2023-02-10 07:06] LABS: URINE APPEARANCE Cloudy; URINE BILIRRUBIN Negative (NEGATIVE); URINE BLOOD NHT; URINE COLOR Yellow; URINE GLUCOSE Negative (NEGATIVE); URINE LEUKOCYTE Large; URINE NITRATE Positive; URINE PROTEIN 30 (NEGATIVE); URINE UROBILINOGEN 0.2 E.U./dl
[2023-02-10 07:09] LABS: URINE EPITHELIAL CELLS 1.4 uL (0.0-38.8); URINE WBC 3443.3 uL (0.0-23.2)
[2023-02-10 08:32] LABS: URINE BACTERIA > 9821.5 uL (0.0-1933)
[2023-02-11] MEDS ORDERED: CEFTAZIDIME/AVIBACTAM 2.5 GM VIAL IV SCH (21:00)
[2023-02-12 07:59] LABS: CALCIUM 7.8 mg/dL (8.5-10.1); GFR 251.22; POTASSIUM 4.19 mEq/L (3.5-5.1)
[2023-02-12 08:01] LABS: CREATININE SERUM 0.26 mg/dL (0.55-1.02)
[2023-02-13 10:24] LABS: HEMATOCRIT 29.7 % (36.0-45.00); HEMOGLOBIN 10.1 g/dL (12.0-15.00); MEAN CELL VOLUME 86.5 fL (80.00-100.00); MEAN CORPUSCULAR HEMOGLOBIN 29.4 pg (27.00-32.0); MEAN CORPUSCULAR HGB CONC 33.9 g/dl (32.0-36.0); PLATELET COUNT 271 K/uL (150-450); RED BLOOD COUNT 3.43 M/uL (4.00-6.00)
[2023-02-16 04:49] LABS: PH,URINE 7.5 (5.0-8.0); URINE APPEARANCE Clear; URINE BILIRRUBIN Negative (NEGATIVE); URINE BLOOD Small; URINE COLOR Yellow; URINE GLUCOSE Negative (NEGATIVE); URINE LEUKOCYTE Trace; URINE NITRATE Negative; URINE UROBILINOGEN 0.2 E.U./dl
[2023-02-16 04:53] LABS: URINE BACTERIA 19.3 uL (0.0-1933); URINE EPITHELIAL CELLS 10.9 uL (0.0-38.8); URINE RBC 127.2 uL (0.0-20.8); URINE WBC 39.4 uL (0.0-23.2)
[2023-02-16 05:05] LABS: URINE PROTEIN 100 (NEGATIVE)
[2023-02-18 08:07] LABS: HEMATOCRIT 36.7 % (36.0-45.00); HEMOGLOBIN 12.3 g/dL (12.0-15.00); MEAN CELL VOLUME 86.6 fL (80.00-100.00); MEAN CORPUSCULAR HEMOGLOBIN 28.9 pg (27.00-32.0); MEAN CORPUSCULAR HGB CONC 33.4 g/dl (32.0-36.0); PLATELET COUNT 287 K/uL (150-450); RED BLOOD COUNT 4.24 M/uL (4.00-6.00); RED CELL DISTRIBUTION WIDTH 16.4 % (11.5-14.5)
[2023-02-18 08:57] LABS: ALBUMIN 1.6 gm/dL (3.4-5.0); BILIRUBIN TOTAL 0.24 mg/dL (0.3-1.2); CALCIUM 8.2 mg/dL (8.5-10.1); CREATININE SERUM 0.33 mg/dL (0.55-1.02); GFR 190.79; GLOBULINA 3.9 G/DL (2.4-3.5); POTASSIUM 4.21 mEq/L (3.5-5.1); TOTAL PROTEIN 5.5 gm/dL (6.4-8.2)
[2023-02-22 07:33] LABS: BILIRUBIN TOTAL 0.32 mg/dL (0.3-1.2); CALCIUM 8.3 mg/dL (8.5-10.1); CREATININE SERUM 0.35 mg/dL (0.55-1.02); GFR 178.27; GLOBULINA 3.7 G/DL (2.4-3.5); MAGNESIUM 1.8 mg/dL (1.8-2.4); PHOSPHOROUS 3.1 mg/dL (2.5-4.9); POTASSIUM 4.02 mEq/L (3.5-5.1); TOTAL PROTEIN 5.7 gm/dL (6.4-8.2)
[2023-02-22] MEDS ORDERED: FUROsemide 20 MG TABLET PO SCH (09:00)
[2023-02-24 11:00] LABS: FERRITIN 1728.5 NG/ML (8-252)
[2023-02-25 06:31] LABS: HEMATOCRIT 35.1 % (36.0-45.00); HEMOGLOBIN 11.3 g/dL (12.0-15.00); MEAN CELL VOLUME 88.2 fL (80.00-100.00); MEAN CORPUSCULAR HEMOGLOBIN 28.4 pg (27.00-32.0); MEAN CORPUSCULAR HGB CONC 32.2 g/dl (32.0-36.0); PLATELET COUNT 217 K/uL (150-450); RED BLOOD COUNT 3.98 M/uL (4.00-6.00); RED CELL DISTRIBUTION WIDTH 16.1 % (11.5-14.5)
[2023-02-25 06:56] LABS: ALBUMIN 1.8 gm/dL (3.4-5.0); BILIRUBIN TOTAL 0.36 mg/dL (0.3-1.2); GLOBULINA 3.4 G/DL (2.4-3.5); MAGNESIUM 1.9 mg/dL (1.8-2.4); PHOSPHOROUS 3.4 mg/dL (2.5-4.9); POTASSIUM 3.87 mEq/L (3.5-5.1); TOTAL PROTEIN 5.2 gm/dL (6.4-8.2)
[2023-02-25 06:59] LABS: C-REACTIVE PROTEIN 11.3 MG/DL (0.00-0.29); CREATININE SERUM 0.25 mg/dL (0.55-1.02); GFR 262.85
[2023-02-25] MEDS ORDERED: 0.9 % SODIUM CHLORIDE 1,000 ML IV SCH (12:15)
[2023-02-25] MEDS ORDERED: CEFTAZIDIME/AVIBACTAM 2.5 GM VIAL IV SCH (13:00)
[2023-02-26 15:18] LABS: PH,URINE 5.5 (5.0-8.0); URINE APPEARANCE Clear; URINE BACTERIA 43.5 uL (0.0-1933); URINE BILIRRUBIN Negative (NEGATIVE); URINE BLOOD Negative; URINE COLOR Yellow; URINE EPITHELIAL CELLS 16.1 uL (0.0-38.8); URINE GLUCOSE Negative (NEGATIVE); URINE LEUKOCYTE Moderate; URINE NITRATE Negative; URINE PROTEIN 30 (NEGATIVE); URINE RBC 21.4 uL (0.0-20.8); URINE UROBILINOGEN 0.2 E.U./dl; URINE WBC 59.6 uL (0.0-23.2)
[2023-02-27] MEDS ORDERED: SOD FERRIC GLUC COMPLX/SUCROSE 62.5 MG in 0.9 % SODIUM CHLORIDE 50 ML IV SCH (13:12)
[2023-02-28 08:21] LABS: HEMATOCRIT 34.3 % (36.0-45.00); HEMOGLOBIN 11.5 g/dL (12.0-15.00); MEAN CELL VOLUME 87.9 fL (80.00-100.00); MEAN CORPUSCULAR HEMOGLOBIN 29.4 pg (27.00-32.0); MEAN CORPUSCULAR HGB CONC 33.4 g/dl (32.0-36.0); PLATELET COUNT 219 K/uL (150-450)
[2023-03-02 06:49] LABS: HEMATOCRIT 38.2 % (36.0-45.00); HEMOGLOBIN 12.8 g/dL (12.0-15.00); MEAN CELL VOLUME 87.3 fL (80.00-100.00); MEAN CORPUSCULAR HEMOGLOBIN 29.3 pg (27.00-32.0); MEAN CORPUSCULAR HGB CONC 33.5 g/dl (32.0-36.0); PLATELET COUNT 230 K/uL (150-450); RED BLOOD COUNT 4.37 M/uL (4.00-6.00)
[2023-03-02 07:22] LABS: ALBUMIN 1.9 gm/dL (3.4-5.0); BILIRUBIN TOTAL 0.37 mg/dL (0.3-1.2); CALCIUM 8.4 mg/dL (8.5-10.1); ERYTHROCYTE SEDIMENTATION RATE 117 mm/hr; GLOBULINA 4.4 G/DL (2.4-3.5); POTASSIUM 3.72 mEq/L (3.5-5.1); TOTAL PROTEIN 6.3 gm/dL (6.4-8.2)
[2023-03-02 07:24] LABS: C-REACTIVE PROTEIN 5.47 MG/DL (0.00-0.29); CREATININE SERUM 0.28 mg/dL (0.55-1.02); GFR 230.63
[2023-03-06 06:17] LABS: HEMATOCRIT 36.8 % (36.0-45.00); MEAN CELL VOLUME 88.5 fL (80.00-100.00); MEAN CORPUSCULAR HGB CONC 32.8 g/dl (32.0-36.0); PLATELET COUNT 238 K/uL (150-450); RED BLOOD COUNT 4.16 M/uL (4.00-6.00); RED CELL DISTRIBUTION WIDTH 16.8 % (11.5-14.5)
[2023-03-06 06:39] LABS: INR 1.09; PARTIAL THROMBOPLASTIN TIME 26.4 SECONDS (22.0-34.0); PROTHROMBIN TIME 11.4 SECONDS (9.0-11.5)
[2023-03-06 06:46] LABS: ALBUMIN 1.7 gm/dL (3.4-5.0); BILIRUBIN TOTAL 0.34 mg/dL (0.3-1.2); CALCIUM 7.9 mg/dL (8.5-10.1); GLOBULINA 3.2 G/DL (2.4-3.5); MAGNESIUM 1.7 mg/dL (1.8-2.4); PHOSPHOROUS 2.5 mg/dL (2.5-4.9); POTASSIUM 3.6 mEq/L (3.5-5.1); TOTAL PROTEIN 4.9 gm/dL (6.4-8.2)
[2023-03-06 06:59] LABS: C-REACTIVE PROTEIN 6.83 MG/DL (0.00-0.29); CREATININE SERUM 0.16 mg/dL (0.55-1.02); GFR 439.91
[2023-03-11] MEDS ORDERED: VANCOMYCIN HCL 1,000 MG in 0.9 % SODIUM CHLORIDE 250 ML IV SCH (17:00)
[2023-03-12 07:12] LABS: HEMATOCRIT 32.8 % (36.0-45.00); HEMOGLOBIN 11.3 g/dL (12.0-15.00); MEAN CELL VOLUME 86.5 fL (80.00-100.00); MEAN CORPUSCULAR HEMOGLOBIN 29.7 pg (27.00-32.0); MEAN CORPUSCULAR HGB CONC 34.3 g/dl (32.0-36.0); PLATELET COUNT 253 K/uL (150-450); RED BLOOD COUNT 3.79 M/uL (4.00-6.00); RED CELL DISTRIBUTION WIDTH 17.4 % (11.5-14.5)
[2023-03-12 07:22] LABS: ANION GAP 9 (10.0-20.0); BLOOD UREA NITROGEN 14 mg/dL (7-18); CALCIUM 7.6 mg/dL (8.5-10.1); CARBON DIOXIDE 24 mEq/L (21-32); CHLORIDE 110 mmol/L (98-107); GLUCOSE FASTING 103 mg/dL (65-100); OSMOLALITY SERUM 278 MOSM/KG (275-295); POTASSIUM 3.54 mEq/L (3.5-5.1); SODIUM 139 mmol/L (136-145)
[2023-03-12 07:30] LABS: BUN CREA RATIO 93 (7.0-25.0); CREATININE SERUM < 0.15 mg/dL (0.55-1.02); GFR 473.97
[2023-03-13] MEDS ORDERED: SOD FERRIC GLUC COMPLX/SUCROSE 62.5 MG/5 ML AMPUL IV SCH (11:37)
[2023-03-17 06:48] LABS: HEMATOCRIT 32.8 % (36.0-45.00); HEMOGLOBIN 11.2 g/dL (12.0-15.00); MEAN CELL VOLUME 87.2 fL (80.00-100.00); MEAN CORPUSCULAR HEMOGLOBIN 29.7 pg (27.00-32.0); MEAN CORPUSCULAR HGB CONC 34.1 g/dl (32.0-36.0); PLATELET COUNT 228 K/uL (150-450); RED BLOOD COUNT 3.76 M/uL (4.00-6.00); RED CELL DISTRIBUTION WIDTH 16.7 % (11.5-14.5)
[2023-03-17 06:56] LABS: INR 1.04; PROTHROMBIN TIME 10.9 SECONDS (9.0-11.5)
[2023-03-17 07:12] LABS: ALBUMIN 1.5 gm/dL (3.4-5.0); BILIRUBIN TOTAL 0.42 mg/dL (0.3-1.2); CALCIUM 7.4 mg/dL (8.5-10.1); MAGNESIUM 1.5 mg/dL (1.8-2.4); POTASSIUM 3.46 mEq/L (3.5-5.1); TOTAL PROTEIN 4.5 gm/dL (6.4-8.2)
[2023-03-17 07:13] LABS: C-REACTIVE PROTEIN 6.51 MG/DL (0.00-0.29); CREATININE SERUM 0.17 mg/dL (0.55-1.02); GFR 410.2
[2023-03-17] MEDS ORDERED: MAGNESIUM SULFATE IN WATER 4 GM/100 ML PIGGYBACK IV ONE (13:00)
[2023-03-17] MEDS ORDERED: POTASSIUM CHLORIDE IN WATER 100 ML IV ONE (13:00)
[2023-03-20 09:39] LABS: HEMATOCRIT 43.3 % (36.0-45.00); HEMOGLOBIN 14.1 g/dL (12.0-15.00); MEAN CELL VOLUME 88.9 fL (80.00-100.00); MEAN CORPUSCULAR HGB CONC 32.6 g/dl (32.0-36.0); PLATELET COUNT 266 K/uL (150-450); RED BLOOD COUNT 4.87 M/uL (4.00-6.00); RED CELL DISTRIBUTION WIDTH 16.9 % (11.5-14.5)
[2023-03-20 10:07] LABS: CALCIUM 7.8 mg/dL (8.5-10.1); GFR 230.63; POTASSIUM 3.89 mEq/L (3.5-5.1)
[2023-03-20 10:10] LABS: CREATININE SERUM 0.28 mg/dL (0.55-1.02)
[2023-03-20] MEDS ORDERED: SUCRALFATE 1 G TABLET PO SCH (17:00)
[2023-03-20] MEDS ORDERED: SILVER SULFADIAZINE 50 GM,NYSTATIN 30 GM,ZINC OXIDE 30 GM TOP SCH (17:00)
[2023-03-24] MEDS ORDERED: LOSARTAN POTASSIUM 25 MG TABLET PO SCH (09:00)
[2023-03-25 07:48] LABS: HEMATOCRIT 34.2 % (36.0-45.00); HEMOGLOBIN 11.6 g/dL (12.0-15.00); MEAN CELL VOLUME 86.9 fL (80.00-100.00); MEAN CORPUSCULAR HEMOGLOBIN 29.5 pg (27.00-32.0); MEAN CORPUSCULAR HGB CONC 33.9 g/dl (32.0-36.0); PLATELET COUNT 328 K/uL (150-450); RED BLOOD COUNT 3.94 M/uL (4.00-6.00)
[2023-03-25 08:30] LABS: ALBUMIN 1.6 gm/dL (3.4-5.0); ALKALINE PHOSPHATASE 126 U/L (50-136); ALT/SGPT 31 U/L (12-78); ANION GAP 8 (10.0-20.0); AST/SGOT 19 U/L (15-37); BLOOD UREA NITROGEN 7 mg/dL (7-18); CALCIUM 7.5 mg/dL (8.5-10.1); CARBON DIOXIDE 24 mEq/L (21-32); CHLORIDE 112 mmol/L (98-107); GLUCOSE FASTING 116 mg/dL (65-100); OSMOLALITY SERUM 280 MOSM/KG (275-295); PHOSPHOROUS 2.4 mg/dL (2.5-4.9); POTASSIUM 3.25 mEq/L (3.5-5.1); SODIUM 141 mmol/L (136-145); TOTAL PROTEIN 4.6 gm/dL (6.4-8.2)
[2023-03-25 08:44] LABS: BUN CREA RATIO 46 (7.0-25.0); C-REACTIVE PROTEIN 3.99 MG/DL (0.00-0.29); CREATININE SERUM < 0.15 mg/dL (0.55-1.02); GFR 473.97
[2023-03-25] MEDS ORDERED: POTASSIUM CHLORIDE IN WATER 100 ML IV ONE (15:00)
[2023-03-25] MEDS ORDERED: MAGNESIUM SULFATE IN WATER 4 GM/100 ML PIGGYBACK IV ONE (15:00)
[2023-03-31 08:10] LABS: HEMATOCRIT 37.7 % (36.0-45.00); HEMOGLOBIN 12.8 g/dL (12.0-15.00); MEAN CELL VOLUME 87.4 fL (80.00-100.00); MEAN CORPUSCULAR HEMOGLOBIN 29.6 pg (27.00-32.0); MEAN CORPUSCULAR HGB CONC 33.9 g/dl (32.0-36.0); PLATELET COUNT 305 K/uL (150-450); RED BLOOD COUNT 4.31 M/uL (4.00-6.00); RED CELL DISTRIBUTION WIDTH 16.4 % (11.5-14.5)
[2023-03-31 09:01] LABS: ALBUMIN 1.7 gm/dL (3.4-5.0); BILIRUBIN TOTAL 0.43 mg/dL (0.3-1.2); CALCIUM 7.8 mg/dL (8.5-10.1); GLOBULINA 3.3 G/DL (2.4-3.5); MAGNESIUM 1.8 mg/dL (1.8-2.4); PHOSPHOROUS 3.1 mg/dL (2.5-4.9); POTASSIUM 4.02 mEq/L (3.5-5.1)
[2023-03-31 09:10] LABS: C-REACTIVE PROTEIN 7.42 MG/DL (0.00-0.29); CREATININE SERUM 0.16 mg/dL (0.55-1.02); GFR 439.91
[2023-04-06 15:42] LABS: HEMATOCRIT 35.7 % (36.0-45.00); HEMOGLOBIN 12.1 g/dL (12.0-15.00); MEAN CELL VOLUME 88.2 fL (80.00-100.00); MEAN CORPUSCULAR HEMOGLOBIN 29.8 pg (27.00-32.0); MEAN CORPUSCULAR HGB CONC 33.8 g/dl (32.0-36.0); PLATELET COUNT 307 K/uL (150-450); RED BLOOD COUNT 4.04 M/uL (4.00-6.00); RED CELL DISTRIBUTION WIDTH 16.5 % (11.5-14.5)
[2023-04-06 16:20] LABS: ALBUMIN 1.5 gm/dL (3.4-5.0); ALKALINE PHOSPHATASE 138 U/L (50-136); ALT/SGPT 30 U/L (12-78); ANION GAP 11 (10.0-20.0); AST/SGOT 22 U/L (15-37); BILIRUBIN TOTAL 0.44 mg/dL (0.3-1.2); BLOOD UREA NITROGEN 9 mg/dL (7-18); CALCIUM 8.2 mg/dL (8.5-10.1); CARBON DIOXIDE 22 mEq/L (21-32); CHLORIDE 110 mmol/L (98-107); GLUCOSE FASTING 99 mg/dL (65-100); OSMOLALITY SERUM 276 MOSM/KG (275-295); SODIUM 139 mmol/L (136-145); TOTAL PROTEIN 4.5 gm/dL (6.4-8.2)
[2023-04-06 16:21] LABS: BUN CREA RATIO 60 (7.0-25.0); CREATININE SERUM < 0.15 mg/dL (0.55-1.02); GFR 473.97
[2023-04-13 11:37] LABS: HEMATOCRIT 36.5 % (36.0-45.00); HEMOGLOBIN 12.2 g/dL (12.0-15.00); MEAN CELL VOLUME 89.1 fL (80.00-100.00); MEAN CORPUSCULAR HEMOGLOBIN 29.7 pg (27.00-32.0); MEAN CORPUSCULAR HGB CONC 33.3 g/dl (32.0-36.0); PLATELET COUNT 253 K/uL (150-450); RED CELL DISTRIBUTION WIDTH 16.7 % (11.5-14.5)
[2023-04-13 12:22] LABS: ALBUMIN 1.5 gm/dL (3.4-5.0); BILIRUBIN TOTAL 0.36 mg/dL (0.3-1.2); GFR 288.7; GLOBULINA 3.3 G/DL (2.4-3.5); POTASSIUM 4.1 mEq/L (3.5-5.1); TOTAL PROTEIN 4.8 gm/dL (6.4-8.2)
[2023-04-13 12:29] LABS: CREATININE SERUM 0.23 mg/dL (0.55-1.02)
[2023-04-15 06:59] LABS: PH,URINE 6.5 (5.0-8.0); URINE APPEARANCE Turbid; URINE BILIRRUBIN Negative (NEGATIVE); URINE BLOOD NHT; URINE COLOR Yellow; URINE GLUCOSE Negative (NEGATIVE); URINE LEUKOCYTE Large; URINE NITRATE Positive; URINE PROTEIN Trace (NEGATIVE)
[2023-04-15 07:00] LABS: URINE EPITHELIAL CELLS 2.1 uL (0.0-38.8); URINE RBC 16.7 uL (0.0-20.8)
[2023-04-15 08:02] LABS: HEMATOCRIT 33.3 % (36.0-45.00); HEMOGLOBIN 11.3 g/dL (12.0-15.00); MEAN CELL VOLUME 87.3 fL (80.00-100.00); MEAN CORPUSCULAR HEMOGLOBIN 29.5 pg (27.00-32.0); MEAN CORPUSCULAR HGB CONC 33.8 g/dl (32.0-36.0); PLATELET COUNT 166 K/uL (150-450); RED BLOOD COUNT 3.82 M/uL (4.00-6.00); RED CELL DISTRIBUTION WIDTH 16.2 % (11.5-14.5)
[2023-04-15 08:14] LABS: URINE BACTERIA > 9821.2 uL (0.0-1933)
[2023-04-15 08:17] LABS: URINE CRYSTALS NEGATIVE /HPF; URINE YEAST NEGATIVE /hpf
[2023-04-15] MEDS ORDERED: SOD FERRIC GLUC COMPLX/SUCROSE 62.5 MG/5 ML AMPUL IV SCH (09:00)
[2023-04-15 09:19] LABS: ALBUMIN 1.4 gm/dL (3.4-5.0); BILIRUBIN TOTAL 0.48 mg/dL (0.3-1.2); CALCIUM 7.8 mg/dL (8.5-10.1); GLOBULINA 2.9 G/DL (2.4-3.5); POTASSIUM 3.85 mEq/L (3.5-5.1); TOTAL PROTEIN 4.3 gm/dL (6.4-8.2)
[2023-04-15 09:20] LABS: C-REACTIVE PROTEIN 22.7 MG/DL (0.00-0.29); CREATININE SERUM 0.16 mg/dL (0.55-1.02); GFR 438.84
[2023-04-15] MEDS ORDERED: CEFTAZIDIME/AVIBACTAM 2.5 GM VIAL IV SCH (17:00)
[2023-04-17] MEDS ORDERED: CEFIDEROCOL SULFATE TOSYLATE 1 GM VIAL IV SCH (17:00)
[2023-04-18 08:14] LABS: HEMATOCRIT 32.6 % (36.0-45.00); HEMOGLOBIN 10.7 g/dL (12.0-15.00); MEAN CELL VOLUME 87.5 fL (80.00-100.00); MEAN CORPUSCULAR HEMOGLOBIN 28.8 pg (27.00-32.0); MEAN CORPUSCULAR HGB CONC 32.9 g/dl (32.0-36.0); PLATELET COUNT 195 K/uL (150-450); RED BLOOD COUNT 3.72 M/uL (4.00-6.00); RED CELL DISTRIBUTION WIDTH 15.7 % (11.5-14.5)
[2023-04-18 09:40] LABS: MAGNESIUM 1.9 mg/dL (1.8-2.4); PHOSPHOROUS 2.8 mg/dL (2.5-4.9)
[2023-04-18 09:59] LABS: ALBUMIN 1.5 gm/dL (3.4-5.0); ALKALINE PHOSPHATASE 178 U/L (50-136); ALT/SGPT 48 U/L (12-78); ANION GAP 11 (10.0-20.0); AST/SGOT 19 U/L (15-37); BILIRUBIN TOTAL 0.43 mg/dL (0.3-1.2); BLOOD UREA NITROGEN 11 mg/dL (7-18); BUN CREA RATIO 73 (7.0-25.0); CALCIUM 7.7 mg/dL (8.5-10.1); CARBON DIOXIDE 23 mEq/L (21-32); CHLORIDE 108 mmol/L (98-107); CREATININE SERUM < 0.15 mg/dL (0.55-1.02); GFR 472.81; GLOBULINA 2.8 G/DL (2.4-3.5); GLUCOSE FASTING 94 mg/dL (65-100); OSMOLALITY SERUM 275 MOSM/KG (275-295); SODIUM 138 mmol/L (136-145); TOTAL PROTEIN 4.3 gm/dL (6.4-8.2)
[2023-04-21] MEDS ORDERED: VANCOMYCIN HCL 1,000 MG in 0.9 % SODIUM CHLORIDE 250 ML IV SCH (12:33)
[2023-04-22 07:47] LABS: HEMOGLOBIN 10.6 g/dL (12.0-15.00); MEAN CELL VOLUME 88.1 fL (80.00-100.00); MEAN CORPUSCULAR HEMOGLOBIN 29.3 pg (27.00-32.0); MEAN CORPUSCULAR HGB CONC 33.2 g/dl (32.0-36.0); PLATELET COUNT 251 K/uL (150-450); RED BLOOD COUNT 3.63 M/uL (4.00-6.00)
[2023-04-22 08:42] LABS: ALBUMIN 1.4 gm/dL (3.4-5.0); ALKALINE PHOSPHATASE 131 U/L (50-136); ALT/SGPT 29 U/L (12-78); ANION GAP 10 (10.0-20.0); AST/SGOT 16 U/L (15-37); BLOOD UREA NITROGEN 12 mg/dL (7-18); CALCIUM 7.5 mg/dL (8.5-10.1); CARBON DIOXIDE 23 mEq/L (21-32); CHLORIDE 110 mmol/L (98-107); GLOBULINA 2.8 G/DL (2.4-3.5); GLUCOSE FASTING 108 mg/dL (65-100); OSMOLALITY SERUM 278 MOSM/KG (275-295); PHOSPHOROUS 3.1 mg/dL (2.5-4.9); SODIUM 139 mmol/L (136-145); TOTAL PROTEIN 4.2 gm/dL (6.4-8.2)
[2023-04-22 09:01] LABS: BUN CREA RATIO 80 (7.0-25.0); GFR 472.81
[2023-04-22 09:02] LABS: CREATININE SERUM < 0.15 mg/dL (0.55-1.02)
[2023-04-22 14:27] LABS: PH,URINE 5.5 (5.0-8.0); URINE APPEARANCE Clear; URINE BILIRRUBIN Negative (NEGATIVE); URINE BLOOD Negative; URINE COLOR Yellow; URINE GLUCOSE Negative (NEGATIVE); URINE LEUKOCYTE Small; URINE NITRATE Negative; URINE PROTEIN Trace (NEGATIVE); URINE UROBILINOGEN 0.2 E.U./dl
[2023-04-22 14:29] LABS: URINE EPITHELIAL CELLS 15.3 uL (0.0-38.8); URINE WBC 162.7 uL (0.0-23.2)
[2023-04-22 14:41] LABS: URINE BACTERIA > 9821.5 uL (0.0-1933)
[2023-04-24] MEDS ORDERED: VANCOMYCIN HCL 1,000 MG in 0.9 % SODIUM CHLORIDE 250 ML IV SCH (17:00)
[2023-04-26] MEDS ORDERED: VANCOMYCIN HCL 1,000 MG VIAL ONE (16:04)
[2023-04-27] MEDS ORDERED: LOSARTAN POTASSIUM 50 MG TABLET PO SCH (09:00)
[2023-04-27] MEDS ORDERED: LINEZOLID IN DEXTROSE 5% 300 ML IV SCH (17:00)
[2023-04-30 06:47] LABS: HEMATOCRIT 33.9 % (36.0-45.00); HEMOGLOBIN 11.4 g/dL (12.0-15.00); MEAN CELL VOLUME 88.2 fL (80.00-100.00); MEAN CORPUSCULAR HEMOGLOBIN 29.6 pg (27.00-32.0); MEAN CORPUSCULAR HGB CONC 33.6 g/dl (32.0-36.0); PLATELET COUNT 266 K/uL (150-450); RED BLOOD COUNT 3.85 M/uL (4.00-6.00)
[2023-04-30 07:11] LABS: ALBUMIN 1.5 gm/dL (3.4-5.0); ALKALINE PHOSPHATASE 131 U/L (50-136); ALT/SGPT 24 U/L (12-78); ANION GAP 8 (10.0-20.0); AST/SGOT 10 U/L (15-37); BILIRUBIN TOTAL 0.24 mg/dL (0.3-1.2); BLOOD UREA NITROGEN 8 mg/dL (7-18); CALCIUM 7.7 mg/dL (8.5-10.1); CARBON DIOXIDE 25 mEq/L (21-32); CHLORIDE 111 mmol/L (98-107); GLOBULINA 2.6 G/DL (2.4-3.5); GLUCOSE FASTING 102 mg/dL (65-100); OSMOLALITY SERUM 278 MOSM/KG (275-295); PHOSPHOROUS 3.3 mg/dL (2.5-4.9); POTASSIUM 4.01 mEq/L (3.5-5.1); SODIUM 140 mmol/L (136-145); TOTAL PROTEIN 4.1 gm/dL (6.4-8.2)
[2023-04-30 07:12] LABS: BUN CREA RATIO 53 (7.0-25.0); C-REACTIVE PROTEIN 4.96 MG/DL (0.00-0.29); CREATININE SERUM < 0.15 mg/dL (0.55-1.02); GFR 472.81
[2023-04-30 07:30] LABS: URINE APPEARANCE Cloudy; URINE BILIRRUBIN Negative (NEGATIVE); URINE BLOOD Negative; URINE COLOR Yellow; URINE GLUCOSE Negative (NEGATIVE); URINE LEUKOCYTE Large; URINE NITRATE Negative; URINE PROTEIN Negative (NEGATIVE); URINE UROBILINOGEN 0.2 E.U./dl
[2023-04-30 07:31] LABS: URINE BACTERIA 331.3 uL (0.0-1933); URINE EPITHELIAL CELLS 10.6 uL (0.0-38.8); URINE RBC 849.2 uL (0.0-20.8); URINE WBC 79.3 uL (0.0-23.2)
[2023-05-04 06:33] LABS: HEMATOCRIT 35.9 % (36.0-45.00); HEMOGLOBIN 11.9 g/dL (12.0-15.00); MEAN CELL VOLUME 89.3 fL (80.00-100.00); MEAN CORPUSCULAR HEMOGLOBIN 29.6 pg (27.00-32.0); MEAN CORPUSCULAR HGB CONC 33.2 g/dl (32.0-36.0); PLATELET COUNT 215 K/uL (150-450); RED BLOOD COUNT 4.02 M/uL (4.00-6.00); RED CELL DISTRIBUTION WIDTH 16.4 % (11.5-14.5)
[2023-05-04 07:34] LABS: ALBUMIN 1.6 gm/dL (3.4-5.0); BILIRUBIN TOTAL 0.28 mg/dL (0.3-1.2); CALCIUM 7.8 mg/dL (8.5-10.1); GLOBULINA 2.9 G/DL (2.4-3.5); POTASSIUM 4.07 mEq/L (3.5-5.1); TOTAL PROTEIN 4.5 gm/dL (6.4-8.2)
[2023-05-04 07:42] LABS: C-REACTIVE PROTEIN 5.76 MG/DL (0.00-0.29); CREATININE SERUM 0.15 mg/dL (0.55-1.02); GFR 472.77
[2023-05-04] MEDS ORDERED: FLUCONAZOLE IN NACL,ISO-OSM 400 MG/200 ML PIGGYBAG IV ONE (13:45)
[2023-05-04] MEDS ORDERED: ALBUMIN HUMAN IV SCH (21:15)
[2023-05-04] MEDS ORDERED: FUROsemide 20 MG/2 ML VIAL IV SCH (22:12)
[2023-05-04] MEDS ORDERED: ALBUMIN HUMAN 0.25GM/ML (50ML) VIAL IV SCH (22:30)
[2023-05-05] MEDS ORDERED: FUROsemide 20 MG TABLET PO SCH (01:00)
[2023-05-05] MEDS ORDERED: ALBUMIN HUMAN 100 ML VIAL IV SCH (09:00)
[2023-05-05] MEDS ORDERED: FUROsemide 20 MG/2 ML VIAL IV SCH (09:00)
[2023-05-06 15:00] LABS: HEMATOCRIT 28.8 % (36.0-45.00); MEAN CELL VOLUME 87.9 fL (80.00-100.00); MEAN CORPUSCULAR HEMOGLOBIN 30.7 pg (27.00-32.0); MEAN CORPUSCULAR HGB CONC 34.9 g/dl (32.0-36.0); PLATELET COUNT 133 K/uL (150-450); RED BLOOD COUNT 3.27 M/uL (4.00-6.00); RED CELL DISTRIBUTION WIDTH 16.4 % (11.5-14.5)
[2023-05-06 15:47] LABS: CALCIUM 7.8 mg/dL (8.5-10.1); CREATININE SERUM 0.3 mg/dL (0.55-1.02); GFR 212.45; MAGNESIUM 1.5 mg/dL (1.8-2.4); PHOSPHOROUS 2.9 mg/dL (2.5-4.9); POTASSIUM 3.05 mEq/L (3.5-5.1)
[2023-05-07] MEDS ORDERED: METOPROLOL TARTRATE 25 MG TABLET PO SCH (09:00)
[2023-05-07] MEDS ORDERED: MAGNESIUM SULFATE IN WATER 4 GM/100 ML PIGGYBACK IV ONE (12:30)
[2023-05-07] MEDS ORDERED: POTASSIUM CHLORIDE IN WATER 100 ML IV ONE (12:30)
[2023-05-07 14:47] LABS: ob POSITIVE (NEGATIVE)
[2023-05-08] MEDS ORDERED: FUROsemide 20 MG/2 ML VIAL IV SCH (21:00)
[2023-05-09 08:59] LABS: HEMATOCRIT 26.2 % (36.0-45.00); HEMOGLOBIN 9.1 g/dL (12.0-15.00); MEAN CELL VOLUME 88.7 fL (80.00-100.00); MEAN CORPUSCULAR HEMOGLOBIN 30.7 pg (27.00-32.0); MEAN CORPUSCULAR HGB CONC 34.6 g/dl (32.0-36.0); RED BLOOD COUNT 2.96 M/uL (4.00-6.00); RED CELL DISTRIBUTION WIDTH 17.1 % (11.5-14.5)
[2023-05-09 09:00] LABS: ALBUMIN 1.7 gm/dL (3.4-5.0); ALKALINE PHOSPHATASE 203 U/L (50-136); ALT/SGPT 25 U/L (12-78); ANION GAP 14 (10.0-20.0); AST/SGOT 12 U/L (15-37); BILIRUBIN TOTAL 0.57 mg/dL (0.3-1.2); BLOOD UREA NITROGEN 16 mg/dL (7-18); CALCIUM 7.9 mg/dL (8.5-10.1); CARBON DIOXIDE 26 mEq/L (21-32); CHLORIDE 109 mmol/L (98-107); GLOBULINA 2.3 G/DL (2.4-3.5); GLUCOSE FASTING 103 mg/dL (65-100); OSMOLALITY SERUM 290 MOSM/KG (275-295); POTASSIUM 3.66 mEq/L (3.5-5.1); SODIUM 145 mmol/L (136-145)
[2023-05-09 09:02] LABS: BUN CREA RATIO 106 (7.0-25.0); CREATININE SERUM < 0.15 mg/dL (0.55-1.02); GFR 472.81
[2023-05-09 10:05] LABS: PLATELET COUNT 82 K/uL (150-450)
[2023-05-12 07:37] LABS: HEMATOCRIT 25.7 % (36.0-45.00); MEAN CELL VOLUME 88.8 fL (80.00-100.00); MEAN CORPUSCULAR HGB CONC 34.6 g/dl (32.0-36.0)
[2023-05-12 07:41] LABS: MEAN CORPUSCULAR HEMOGLOBIN 30.6 pg (27.00-32.0)
[2023-05-12 07:42] LABS: HEMOGLOBIN 8.9 g/dL (12.0-15.00); PLATELET COUNT 125 K/uL (150-450)
[2023-05-12 08:20] LABS: MANUAL PLATELET COUNT 310
[2023-05-12] MEDS ORDERED: FAMOTIDINE/PF 20 MG in 0.9 % SODIUM CHLORIDE 8 ML IV PUSH SCH (10:04)
[2023-05-12] MEDS ORDERED: FUROsemide 20 MG/2 ML VIAL IV SCH (10:15)
[2023-05-14 02:03] LABS: HEMATOCRIT 39.9 % (36.0-45.00); MEAN CELL VOLUME 88.9 fL (80.00-100.00); MEAN CORPUSCULAR HGB CONC 33.2 g/dl (32.0-36.0); PLATELET COUNT 107 K/uL (150-450); RED BLOOD COUNT 4.49 M/uL (4.00-6.00); RED CELL DISTRIBUTION WIDTH 16.9 % (11.5-14.5)
[2023-05-14 02:04] LABS: HEMOGLOBIN 13.2 g/dL (12.0-15.00); MEAN CORPUSCULAR HEMOGLOBIN 29.3 pg (27.00-32.0)
[2023-05-14 07:05] LABS: PH,URINE 5.5 (5.0-8.0); URINE APPEARANCE Cloudy; URINE BILIRRUBIN Small (NEGATIVE); URINE BLOOD Negative; URINE COLOR Dark Yellow; URINE GLUCOSE Negative (NEGATIVE); URINE LEUKOCYTE Large; URINE NITRATE Negative; URINE PROTEIN Trace (NEGATIVE)
[2023-05-14 07:08] LABS: URINE WBC 919.6 uL (0.0-23.2)
[2023-05-14 07:15] LABS: URINE BACTERIA > 9821.5 uL (0.0-1933)
[2023-05-14] MEDS ORDERED: 0.9 % SODIUM CHLORIDE 10 ML VIAL IJ ONE (08:00)
[2023-05-14] MEDS ORDERED: GENTAMICIN SULFATE 40 MG/ML VIAL IV ONE (17:00)
[2023-05-15 07:22] LABS: PH,URINE 5.5 (5.0-8.0); URINE APPEARANCE Clear; URINE BILIRRUBIN Negative (NEGATIVE); URINE BLOOD Negative; URINE COLOR Dark Yellow; URINE GLUCOSE Negative (NEGATIVE); URINE LEUKOCYTE Moderate; URINE NITRATE Negative; URINE PROTEIN Trace (NEGATIVE)
[2023-05-15 07:24] LABS: URINE EPITHELIAL CELLS 18.7 uL (0.0-38.8); URINE WBC 381.3 uL (0.0-23.2)
[2023-05-15 10:24] LABS: HEMATOCRIT 39.5 % (36.0-45.00); HEMOGLOBIN 12.8 g/dL (12.0-15.00); MEAN CELL VOLUME 90.8 fL (80.00-100.00); MEAN CORPUSCULAR HEMOGLOBIN 29.4 pg (27.00-32.0); MEAN CORPUSCULAR HGB CONC 32.4 g/dl (32.0-36.0); RED BLOOD COUNT 4.35 M/uL (4.00-6.00); RED CELL DISTRIBUTION WIDTH 17.5 % (11.5-14.5)
[2023-05-15 10:28] LABS: PLATELET COUNT 101 K/uL (150-450)
[2023-05-15 10:49] LABS: ALBUMIN 1.7 gm/dL (3.4-5.0); BILIRUBIN TOTAL 0.73 mg/dL (0.3-1.2); CALCIUM 7.7 mg/dL (8.5-10.1); GLOBULINA 2.7 G/DL (2.4-3.5); MAGNESIUM 1.8 mg/dL (1.8-2.4); PHOSPHOROUS 3.7 mg/dL (2.5-4.9); POTASSIUM 3.65 mEq/L (3.5-5.1); TOTAL PROTEIN 4.4 gm/dL (6.4-8.2)
[2023-05-15 11:29] LABS: C-REACTIVE PROTEIN 18.1 MG/DL (0.00-0.29); CREATININE SERUM 0.28 mg/dL (0.55-1.02); GFR 230.07
[2023-05-16 08:21] LABS: URINE APPEARANCE Clear; URINE BILIRRUBIN Negative (NEGATIVE); URINE BLOOD Negative; URINE COLOR Yellow; URINE GLUCOSE Negative (NEGATIVE); URINE LEUKOCYTE Small; URINE NITRATE Negative; URINE PROTEIN Negative (NEGATIVE)
[2023-05-16 08:50] LABS: URINE MUCUS SCANT
[2023-05-16 09:17] LABS: URINE RBC 0-3 /HPF
[2023-05-16 09:18] LABS: URINE BACTERIA MODERATE; URINE CRYSTALS FEW /HPF; URINE EPITHELIAL CELLS 0-4 /HPF
[2023-05-16] MEDS ORDERED: CEFTRIAXONE SODIUM 2,000 MG in 0.9 % SODIUM CHLORIDE 100 ML IV SCH (13:42)
[2023-05-18 08:25] LABS: HEMATOCRIT 33.6 % (36.0-45.00); HEMOGLOBIN 11.5 g/dL (12.0-15.00); MEAN CELL VOLUME 88.7 fL (80.00-100.00); MEAN CORPUSCULAR HEMOGLOBIN 30.3 pg (27.00-32.0); MEAN CORPUSCULAR HGB CONC 34.2 g/dl (32.0-36.0); RED BLOOD COUNT 3.79 M/uL (4.00-6.00); RED CELL DISTRIBUTION WIDTH 16.8 % (11.5-14.5)
[2023-05-18 08:30] LABS: PLATELET COUNT 118 K/uL (150-450)
[2023-05-19] MEDS ORDERED: AMIKACIN SULFATE 250 MG/ML - 1GM VIAL IV ONE (12:15)
[2023-05-21 07:11] LABS: ALBUMIN 1.8 gm/dL (3.4-5.0); BILIRUBIN TOTAL 0.44 mg/dL (0.3-1.2); CALCIUM 8.1 mg/dL (8.5-10.1); GLOBULINA 2.8 G/DL (2.4-3.5); MAGNESIUM 1.9 mg/dL (1.8-2.4); PHOSPHOROUS 3.5 mg/dL (2.5-4.9); POTASSIUM 4.1 mEq/L (3.5-5.1); TOTAL PROTEIN 4.6 gm/dL (6.4-8.2)
[2023-05-21 07:32] LABS: GFR 359.91
[2023-05-21 07:33] LABS: CREATININE SERUM 0.19 mg/dL (0.55-1.02); HEMATOCRIT 34.9 % (36.0-45.00); MEAN CORPUSCULAR HEMOGLOBIN 30.9 pg (27.00-32.0); MEAN CORPUSCULAR HGB CONC 34.3 g/dl (32.0-36.0); PLATELET COUNT 231 K/uL (150-450); RED BLOOD COUNT 3.88 M/uL (4.00-6.00); RED CELL DISTRIBUTION WIDTH 16.4 % (11.5-14.5)
[2023-05-21] MEDS ORDERED: AMIKACIN SULFATE 250 MG/ML (500MG) VIAL IV ONE (09:00)
[2023-05-21] MEDS ORDERED: AMIKACIN SULFATE 250 MG/ML (500MG) VIAL IV SCH (21:00)
[2023-05-24 07:41] LABS: HEMATOCRIT 35.3 % (36.0-45.00); MEAN CELL VOLUME 89.2 fL (80.00-100.00); MEAN CORPUSCULAR HEMOGLOBIN 30.2 pg (27.00-32.0); MEAN CORPUSCULAR HGB CONC 33.9 g/dl (32.0-36.0); PLATELET COUNT 243 K/uL (150-450); RED BLOOD COUNT 3.96 M/uL (4.00-6.00); RED CELL DISTRIBUTION WIDTH 16.6 % (11.5-14.5)
[2023-05-24 08:25] LABS: ALBUMIN 1.8 gm/dL (3.4-5.0); BILIRUBIN TOTAL 0.58 mg/dL (0.3-1.2); CREATININE SERUM 0.34 mg/dL (0.55-1.02); GFR 183.88; GLOBULINA 2.9 G/DL (2.4-3.5); MAGNESIUM 1.8 mg/dL (1.8-2.4); PHOSPHOROUS 3.3 mg/dL (2.5-4.9); POTASSIUM 4.5 mEq/L (3.5-5.1); TOTAL PROTEIN 4.7 gm/dL (6.4-8.2)
[2023-05-24] MEDS ORDERED: AMIKACIN SULFATE 250 MG/ML (500MG) VIAL IV SCH (17:00)
[2023-05-25 09:01] LABS: PH,URINE 7.5 (5.0-8.0); URINE APPEARANCE Clear; URINE BILIRRUBIN Negative (NEGATIVE); URINE BLOOD Negative; URINE COLOR Yellow; URINE GLUCOSE Negative (NEGATIVE); URINE LEUKOCYTE Moderate; URINE NITRATE Negative; URINE PROTEIN Negative (NEGATIVE)
[2023-05-25 09:02] LABS: URINE EPITHELIAL CELLS 2.1 uL (0.0-38.8); URINE RBC 4.1 uL (0.0-20.8); URINE WBC 129.9 uL (0.0-23.2)
[2023-05-26 07:11] LABS: ALBUMIN 1.7 gm/dL (3.4-5.0); BILIRUBIN TOTAL 0.51 mg/dL (0.3-1.2); CALCIUM 8.2 mg/dL (8.5-10.1); CREATININE SERUM 0.32 mg/dL (0.55-1.02); GFR 197.21; GLOBULINA 3.3 G/DL (2.4-3.5); MAGNESIUM 1.9 mg/dL (1.8-2.4); PHOSPHOROUS 2.8 mg/dL (2.5-4.9); POTASSIUM 3.71 mEq/L (3.5-5.1)
[2023-05-26 07:34] LABS: HEMATOCRIT 33.5 % (36.0-45.00); HEMOGLOBIN 11.5 g/dL (12.0-15.00); MEAN CELL VOLUME 90.1 fL (80.00-100.00); MEAN CORPUSCULAR HGB CONC 34.4 g/dl (32.0-36.0); PLATELET COUNT 238 K/uL (150-450); RED BLOOD COUNT 3.72 M/uL (4.00-6.00)
[2023-05-26] MEDS ORDERED: CIPROFLOXACIN IN 5 % DEXTROSE 400 MG/200 ML PIGGYBAG IV SCH (21:00)
[2023-05-29 06:29] LABS: HEMATOCRIT 34.5 % (36.0-45.00); HEMOGLOBIN 11.8 g/dL (12.0-15.00); MEAN CELL VOLUME 88.6 fL (80.00-100.00); MEAN CORPUSCULAR HEMOGLOBIN 30.1 pg (27.00-32.0); PLATELET COUNT 224 K/uL (150-450); RED CELL DISTRIBUTION WIDTH 16.3 % (11.5-14.5)
[2023-05-29 07:02] LABS: ALBUMIN 1.9 gm/dL (3.4-5.0); BILIRUBIN TOTAL 0.55 mg/dL (0.3-1.2); CALCIUM 7.9 mg/dL (8.5-10.1); CREATININE SERUM 0.46 mg/dL (0.55-1.02); GFR 129.73; GLOBULINA 2.8 G/DL (2.4-3.5); MAGNESIUM 1.8 mg/dL (1.8-2.4); PHOSPHOROUS 3.6 mg/dL (2.5-4.9); POTASSIUM 3.85 mEq/L (3.5-5.1); TOTAL PROTEIN 4.7 gm/dL (6.4-8.2)
[2023-05-29 07:10] LABS: C-REACTIVE PROTEIN 15.4 MG/DL (0.00-0.29)
[2023-06-02 07:08] LABS: HEMATOCRIT 35.6 % (36.0-45.00); HEMOGLOBIN 11.7 g/dL (12.0-15.00); MEAN CELL VOLUME 90.3 fL (80.00-100.00); MEAN CORPUSCULAR HEMOGLOBIN 29.7 pg (27.00-32.0); MEAN CORPUSCULAR HGB CONC 32.9 g/dl (32.0-36.0); PLATELET COUNT 277 K/uL (150-450); RED BLOOD COUNT 3.95 M/uL (4.00-6.00); RED CELL DISTRIBUTION WIDTH 15.7 % (11.5-14.5)
[2023-06-02 07:49] LABS: ALBUMIN 1.7 gm/dL (3.4-5.0); BILIRUBIN TOTAL 0.46 mg/dL (0.3-1.2); CALCIUM 7.8 mg/dL (8.5-10.1); CREATININE SERUM 0.46 mg/dL (0.55-1.02); GFR 129.73; GLOBULINA 2.9 G/DL (2.4-3.5); MAGNESIUM 1.7 mg/dL (1.8-2.4); PHOSPHOROUS 3.2 mg/dL (2.5-4.9); POTASSIUM 3.97 mEq/L (3.5-5.1); TOTAL PROTEIN 4.6 gm/dL (6.4-8.2)
[2023-06-02 08:01] LABS: C-REACTIVE PROTEIN 13.7 MG/DL (0.00-0.29)
[2023-06-02] MEDS ORDERED: SOD FERRIC GLUC COMPLX/SUCROSE 62.5 MG/5 ML AMPUL IV SCH (09:36)
[2023-06-09 06:53] LABS: HEMATOCRIT 32.5 % (36.0-45.00); MEAN CELL VOLUME 89.1 fL (80.00-100.00); MEAN CORPUSCULAR HGB CONC 33.7 g/dl (32.0-36.0); PLATELET COUNT 144 K/uL (150-450); RED BLOOD COUNT 3.65 M/uL (4.00-6.00); RED CELL DISTRIBUTION WIDTH 16.3 % (11.5-14.5)
[2023-06-09 07:25] LABS: ALBUMIN 1.6 gm/dL (3.4-5.0); BILIRUBIN TOTAL 0.56 mg/dL (0.3-1.2); CALCIUM 7.6 mg/dL (8.5-10.1); CREATININE SERUM 0.36 mg/dL (0.55-1.02); GFR 172.15; GLOBULINA 2.7 G/DL (2.4-3.5); MAGNESIUM 1.7 mg/dL (1.8-2.4); PHOSPHOROUS 3.2 mg/dL (2.5-4.9); POTASSIUM 3.91 mEq/L (3.5-5.1); TOTAL PROTEIN 4.3 gm/dL (6.4-8.2)
[2023-06-09 07:27] LABS: C-REACTIVE PROTEIN 17.1 MG/DL (0.00-0.29)
[2023-06-16 07:50] LABS: ALBUMIN 1.6 gm/dL (3.4-5.0); BILIRUBIN TOTAL 0.58 mg/dL (0.3-1.2); CREATININE SERUM 0.41 mg/dL (0.55-1.02); GFR 148.15; MAGNESIUM 1.6 mg/dL (1.8-2.4); PHOSPHOROUS 3.5 mg/dL (2.5-4.9); POTASSIUM 4.29 mEq/L (3.5-5.1); TOTAL PROTEIN 4.6 gm/dL (6.4-8.2)
[2023-06-16 07:52] LABS: C-REACTIVE PROTEIN 19.2 MG/DL (0.00-0.29)
[2023-06-16] MEDS ORDERED: MAGNESIUM SULFATE IN WATER 4 GM/100 ML PIGGYBACK IV ONE (08:30)
[2023-06-16 13:54] LABS: HEMATOCRIT 39.1 % (36.0-45.00); HEMOGLOBIN 12.9 g/dL (12.0-15.00); MEAN CELL VOLUME 89.5 fL (80.00-100.00); MEAN CORPUSCULAR HEMOGLOBIN 29.4 pg (27.00-32.0); MEAN CORPUSCULAR HGB CONC 32.9 g/dl (32.0-36.0); PLATELET COUNT 211 K/uL (150-450); RED BLOOD COUNT 4.37 M/uL (4.00-6.00); RED CELL DISTRIBUTION WIDTH 16.2 % (11.5-14.5)
[2023-06-18 05:33] LABS: URINE EPITHELIAL CELLS 5.2 uL (0.0-38.8); URINE RBC 6.3 uL (0.0-20.8); URINE WBC 669.7 uL (0.0-23.2)
[2023-06-18 05:42] LABS: PH,URINE 5.5 (5.0-8.0); URINE APPEARANCE Cloudy; URINE BILIRRUBIN Negative (NEGATIVE); URINE BLOOD Negative; URINE COLOR Yellow; URINE GLUCOSE Negative (NEGATIVE); URINE LEUKOCYTE Large; URINE NITRATE Negative; URINE PROTEIN Negative (NEGATIVE)
[2023-06-18 05:45] LABS: URINE BACTERIA > 9821.5 uL (0.0-1933)
[2023-06-19 22:01] LABS: URINE APPEARANCE Cloudy; URINE BILIRRUBIN Negative (NEGATIVE); URINE BLOOD Small; URINE COLOR Yellow; URINE GLUCOSE Negative (NEGATIVE); URINE LEUKOCYTE Large; URINE NITRATE Positive; URINE PROTEIN Negative (NEGATIVE); URINE UROBILINOGEN 0.2 E.U./dl
[2023-06-19 22:02] LABS: URINE EPITHELIAL CELLS 2.1 uL (0.0-38.8); URINE RBC 106.2 uL (0.0-20.8); URINE WBC 263.2 uL (0.0-23.2)
[2023-06-19 22:16] LABS: URINE BACTERIA > 9821.5 uL (0.0-1933); URINE YEAST MODERATE /hpf
[2023-06-20 14:28] LABS: HEMATOCRIT 32.1 % (36.0-45.00); HEMOGLOBIN 10.7 g/dL (12.0-15.00); MEAN CORPUSCULAR HEMOGLOBIN 29.8 pg (27.00-32.0); MEAN CORPUSCULAR HGB CONC 33.2 g/dl (32.0-36.0); PLATELET COUNT 184 K/uL (150-450); RED BLOOD COUNT 3.57 M/uL (4.00-6.00); RED CELL DISTRIBUTION WIDTH 16.7 % (11.5-14.5)
[2023-06-20 14:52] LABS: ALBUMIN 1.4 gm/dL (3.4-5.0); BILIRUBIN TOTAL 0.66 mg/dL (0.3-1.2); CALCIUM 7.7 mg/dL (8.5-10.1); CREATININE SERUM 0.43 mg/dL (0.55-1.02); GFR 140.23; GLOBULINA 2.9 G/DL (2.4-3.5); MAGNESIUM 1.9 mg/dL (1.8-2.4); PHOSPHOROUS 3.2 mg/dL (2.5-4.9); POTASSIUM 3.83 mEq/L (3.5-5.1); TOTAL PROTEIN 4.3 gm/dL (6.4-8.2)
[2023-06-20 14:59] LABS: C-REACTIVE PROTEIN 20.6 MG/DL (0.00-0.29)
[2023-06-22 07:51] LABS: HEMATOCRIT 28.8 % (36.0-45.00); HEMOGLOBIN 9.6 g/dL (12.0-15.00); MEAN CELL VOLUME 90.6 fL (80.00-100.00); MEAN CORPUSCULAR HEMOGLOBIN 30.1 pg (27.00-32.0); MEAN CORPUSCULAR HGB CONC 33.3 g/dl (32.0-36.0); PLATELET COUNT 223 K/uL (150-450); RED BLOOD COUNT 3.18 M/uL (4.00-6.00); RED CELL DISTRIBUTION WIDTH 16.4 % (11.5-14.5)
[2023-06-22] MEDS ORDERED: AMIKACIN SULFATE 250 MG/ML - 1GM VIAL IV ONE (11:15)
[2023-06-22 14:23] LABS: CALCIUM 7.6 mg/dL (8.5-10.1); CREATININE SERUM 0.4 mg/dL (0.55-1.02); GFR 152.44; MAGNESIUM 1.9 mg/dL (1.8-2.4); POTASSIUM 3.66 mEq/L (3.5-5.1)
[2023-06-23 07:27] LABS: URINE EPITHELIAL CELLS 7.8 uL (0.0-38.8); URINE RBC 347.6 uL (0.0-20.8); URINE WBC 1371.7 uL (0.0-23.2)
[2023-06-23 07:49] LABS: URINE BILIRRUBIN NEGATIVE (NEGATIVE); URINE BLOOD TRACE; URINE GLUCOSE NEGATIVE (NEGATIVE); URINE LEUKOCYTE MODERATE; URINE NITRATE POSITIVE; URINE PROTEIN NEGATIVE (NEGATIVE); URINE UROBILINOGEN 0.2 E.U./dl
[2023-06-23 07:55] LABS: URINE APPEARANCE SL CLOUDY; URINE COLOR YELLOW
[2023-06-23 08:43] LABS: URINE BACTERIA > 9821.5 uL (0.0-1933)
[2023-06-23 08:44] LABS: URINE YEAST MANY /hpf
[2023-06-23] MEDS ORDERED: SOD FERRIC GLUC COMPLX/SUCROSE 62.5 MG/5 ML AMPUL IV SCH (09:00)
[2023-06-24 10:41] LABS: PH,URINE 5.5 (5.0-8.0); URINE APPEARANCE Cloudy; URINE BILIRRUBIN Small (NEGATIVE); URINE BLOOD Trace; URINE COLOR Dark Yellow; URINE GLUCOSE Negative (NEGATIVE); URINE LEUKOCYTE Large; URINE NITRATE Negative; URINE PROTEIN Trace (NEGATIVE); URINE RBC 36.5 uL (0.0-20.8); URINE WBC 1502.3 uL (0.0-23.2)
[2023-06-24 11:17] LABS: URINE BACTERIA > 9821.5 uL (0.0-1933)
[2023-06-24 11:19] LABS: URINE YEAST MODERATE /hpf
[2023-06-24] MEDS ORDERED: MEROPENEM 500 MG/VIAL VIAL IV SCH (15:22)
[2023-06-25 11:19] LABS: HEMATOCRIT 29.4 % (36.0-45.00); MEAN CELL VOLUME 89.4 fL (80.00-100.00); PLATELET COUNT 195 K/uL (150-450); RED BLOOD COUNT 3.29 M/uL (4.00-6.00); RED CELL DISTRIBUTION WIDTH 16.4 % (11.5-14.5)
[2023-06-25 11:24] LABS: HEMOGLOBIN 9.7 g/dL (12.0-15.00); MEAN CORPUSCULAR HEMOGLOBIN 29.4 pg (27.00-32.0)
[2023-06-25 12:06] LABS: ALBUMIN 1.3 gm/dL (3.4-5.0); BILIRUBIN TOTAL 0.47 mg/dL (0.3-1.2); CALCIUM 7.6 mg/dL (8.5-10.1); CREATININE SERUM 0.42 mg/dL (0.55-1.02); GFR 144.09; GLOBULINA 2.8 G/DL (2.4-3.5); MAGNESIUM 1.8 mg/dL (1.8-2.4); PHOSPHOROUS 3.3 mg/dL (2.5-4.9); POTASSIUM 3.18 mEq/L (3.5-5.1); TOTAL PROTEIN 4.1 gm/dL (6.4-8.2)
[2023-06-25 12:11] LABS: C-REACTIVE PROTEIN 20.1 MG/DL (0.00-0.29)
[2023-06-25] MEDS ORDERED: MEROPENEM 1,000 MG VIAL IV SCH (20:00)
[2023-06-26] MEDS ORDERED: ANIDULAFUNGIN 100 MG VIAL IV ONE (16:45)
[2023-06-27] MEDS ORDERED: ANIDULAFUNGIN 100 MG VIAL IV SCH (17:00)
[2023-06-29] MEDS ORDERED: FLUCONAZOLE IN NACL,ISO-OSM 400 MG/200 ML PIGGYBAG IV ONE (11:15)
[2023-06-30 06:58] LABS: HEMATOCRIT 28.4 % (36.0-45.00); HEMOGLOBIN 9.5 g/dL (12.0-15.00); MEAN CELL VOLUME 89.1 fL (80.00-100.00); MEAN CORPUSCULAR HEMOGLOBIN 29.9 pg (27.00-32.0); MEAN CORPUSCULAR HGB CONC 33.6 g/dl (32.0-36.0); RED BLOOD COUNT 3.19 M/uL (4.00-6.00); RED CELL DISTRIBUTION WIDTH 16.8 % (11.5-14.5)
[2023-06-30 07:08] LABS: PLATELET COUNT 53 K/uL (150-450)
[2023-06-30] MEDS ORDERED: MULTIVIT INFUSN,ADULT 4,VIT K 10 ML VIAL IV SCH (10:53)
[2023-06-30] MEDS ORDERED: SOD FERRIC GLUC COMPLX/SUCROSE 62.5 MG/5 ML AMPUL IV SCH (10:53)
[2023-06-30] MEDS ORDERED: FLUCONAZOLE IN NACL,ISO-OSM 200 ML IV SCH (12:00)
[2023-06-30 18:15] LABS: ALBUMIN 1.1 gm/dL (3.4-5.0); BILIRUBIN TOTAL 0.34 mg/dL (0.3-1.2); CALCIUM 7.5 mg/dL (8.5-10.1); CREATININE SERUM 0.33 mg/dL (0.55-1.02); GFR 190.32; GLOBULINA 2.7 G/DL (2.4-3.5); MAGNESIUM 1.7 mg/dL (1.8-2.4); PHOSPHOROUS 2.5 mg/dL (2.5-4.9); POTASSIUM 3.68 mEq/L (3.5-5.1); TOTAL PROTEIN 3.8 gm/dL (6.4-8.2)
[2023-06-30 18:16] LABS: C-REACTIVE PROTEIN 23.2 MG/DL (0.00-0.29)
[2023-07-01 06:56] LABS: HEMATOCRIT 28.5 % (36.0-45.00); HEMOGLOBIN 9.6 g/dL (12.0-15.00); MEAN CELL VOLUME 88.7 fL (80.00-100.00); MEAN CORPUSCULAR HGB CONC 33.8 g/dl (32.0-36.0); PLATELET COUNT 168 K/uL (150-450); RED BLOOD COUNT 3.21 M/uL (4.00-6.00); RED CELL DISTRIBUTION WIDTH 16.8 % (11.5-14.5)
[2023-07-01] MEDS ORDERED: THIAMINE HCL 100 MG/ML 2 ML VIAL IV SCH (19:05)
[2023-07-02] MEDS ORDERED: PYRIDOXINE HCL 100 MG TABLET PO SCH (09:00)
[2023-07-02] MEDS ORDERED: FOLIC ACID 5 MG/ML VIAL IV SCH (09:34)
[2023-07-03] MEDS ORDERED: FOLIC ACID 5 MG/ML VIAL IV SCH (09:00)
[2023-07-07 06:18] LABS: HEMATOCRIT 29.9 % (36.0-45.00); MEAN CELL VOLUME 89.7 fL (80.00-100.00); MEAN CORPUSCULAR HEMOGLOBIN 29.9 pg (27.00-32.0); MEAN CORPUSCULAR HGB CONC 33.4 g/dl (32.0-36.0); RED BLOOD COUNT 3.33 M/uL (4.00-6.00); RED CELL DISTRIBUTION WIDTH 18.1 % (11.5-14.5)
[2023-07-07 07:15] LABS: ALBUMIN 1.1 gm/dL (3.4-5.0); BILIRUBIN TOTAL 0.49 mg/dL (0.3-1.2); CALCIUM 7.6 mg/dL (8.5-10.1); CREATININE SERUM 0.64 mg/dL (0.55-1.02); GFR 88.62; GLOBULINA 2.7 G/DL (2.4-3.5); MAGNESIUM 1.9 mg/dL (1.8-2.4); PHOSPHOROUS 2.3 mg/dL (2.5-4.9); POTASSIUM 3.68 mEq/L (3.5-5.1); TOTAL PROTEIN 3.8 gm/dL (6.4-8.2)
[2023-07-07 07:33] LABS: PLATELET COUNT 125 K/uL (150-450)
[2023-07-07 14:52] LABS: URINE APPEARANCE Turbid; URINE BILIRRUBIN Negative (NEGATIVE); URINE BLOOD Moderate; URINE COLOR Dark Yellow; URINE GLUCOSE Negative (NEGATIVE); URINE LEUKOCYTE Large; URINE NITRATE Negative; URINE PROTEIN 30 (NEGATIVE)
[2023-07-07 14:56] LABS: URINE BACTERIA 4179.3 uL (0.0-1933); URINE EPITHELIAL CELLS 108.5 uL (0.0-38.8); URINE RBC 625.3 uL (0.0-20.8); URINE WBC 2381.2 uL (0.0-23.2)
[2023-07-07 15:30] LABS: URINE YEAST FEW /hpf
[2023-07-08 06:29] LABS: HEMOGLOBIN 10.1 g/dL (12.0-15.00); MEAN CELL VOLUME 89.3 fL (80.00-100.00); MEAN CORPUSCULAR HEMOGLOBIN 30.2 pg (27.00-32.0); MEAN CORPUSCULAR HGB CONC 33.9 g/dl (32.0-36.0); RED BLOOD COUNT 3.35 M/uL (4.00-6.00); RED CELL DISTRIBUTION WIDTH 17.7 % (11.5-14.5)
[2023-07-08 06:51] LABS: PLATELET COUNT 93 K/uL (150-450)
[2023-07-08 08:42] LABS: PLATELET ESTIMATE NORMAL (NORMAL)
[2023-07-08] MEDS ORDERED: VANCOMYCIN HCL 1,000 MG VIAL IV SCH (09:00)
[2023-07-08] MEDS ORDERED: GENTAMICIN SULFATE 40 MG/ML VIAL IV ONE (17:00)
[2023-07-08] MEDS ORDERED: MEROPENEM 1,000 MG VIAL IV SCH (18:00)
[2023-07-09] MEDS ORDERED: IOHEXOL 350 mgI/ML 50ML BOTT PO ONE (05:00)
[2023-07-09 06:11] LABS: HEMATOCRIT 28.2 % (36.0-45.00); HEMOGLOBIN 9.4 g/dL (12.0-15.00); MEAN CELL VOLUME 89.7 fL (80.00-100.00); MEAN CORPUSCULAR HEMOGLOBIN 29.9 pg (27.00-32.0); MEAN CORPUSCULAR HGB CONC 33.3 g/dl (32.0-36.0); RED BLOOD COUNT 3.14 M/uL (4.00-6.00); RED CELL DISTRIBUTION WIDTH 17.9 % (11.5-14.5)
[2023-07-09 07:10] LABS: BILIRUBIN TOTAL 0.45 mg/dL (0.3-1.2); CALCIUM 7.5 mg/dL (8.5-10.1); CREATININE SERUM 0.75 mg/dL (0.55-1.02); GFR 73.8; POTASSIUM 3.47 mEq/L (3.5-5.1); TOTAL PROTEIN 3.4 gm/dL (6.4-8.2)
[2023-07-09 07:11] LABS: ALBUMIN 0.9 gm/dL (3.4-5.0); C-REACTIVE PROTEIN 25.3 MG/DL (0.00-0.29); GLOBULINA 2.5 G/DL (2.4-3.5)
[2023-07-09 07:37] LABS: PLATELET COUNT 93 K/uL (150-450)
[2023-07-09 08:26] LABS: URINE APPEARANCE Turbid; URINE BACTERIA 8526.3 uL (0.0-1933); URINE BILIRRUBIN Small (NEGATIVE); URINE BLOOD Large; URINE COLOR Dark Yellow; URINE EPITHELIAL CELLS 36.1 uL (0.0-38.8); URINE GLUCOSE Negative (NEGATIVE); URINE LEUKOCYTE Moderate; URINE NITRATE Negative; URINE PROTEIN 30 (NEGATIVE); URINE RBC 240.5 uL (0.0-20.8); URINE WBC 756.2 uL (0.0-23.2)
[2023-07-09] MEDS ORDERED: GENTAMICIN SULFATE 40 MG/ML VIAL IV SCH (09:00)
[2023-07-09 09:10] LABS: URINE CRYSTALS FEW /HPF
[2023-07-09 09:11] LABS: URINE YEAST FEW /hpf
[2023-07-09 09:26] LABS: ABG PH 7.475 (7.35-7.45); ABG PO2 336.7 mmHg (80-100); ABG pCO2 25.3 mmHg (35-45); BASE EXCESS -3.5 mmol/l; BICARBONATE 18.2 mmol/l (23-25); SaO2 99.9 %; Tco2 18.9 mmol/l
[2023-07-09 09:27] LABS: allen test SATISFACTORY; puncture site RADIAL RIGHT
[2023-07-09 09:28] LABS: o2 100 %
[2023-07-09] MEDS ORDERED: NOREPINEPHRINE BITARTRATE 1 MG/ML AMPUL IV STA (09:51)
[2023-07-09] MEDS ORDERED: NOREPINEPHRINE BITARTRATE 8 MG in DEXTROSE 5 % IN WATER 250 ML IV SCH (10:15)
[2023-07-09] MEDS ORDERED: POLYMYXIN B SULFATE 500,000 U VIAL IV ONE (17:00)
[2023-07-09] MEDS ORDERED: ANIDULAFUNGIN 100 MG VIAL IV ONE (17:15)
[2023-07-09] MEDS ORDERED: MEROPENEM 1,000 MG VIAL IV SCH (21:00)
[2023-07-09] MEDS ORDERED: DOXYCYCLINE HYCLATE 100MG IV SCH (21:00)
[2023-07-10] MEDS ORDERED: POLYMYXIN B SULFATE 500,000 U VIAL IV SCH (05:00)
[2023-07-10 14:11] LABS: HEMATOCRIT 32.8 % (36.0-45.00); HEMOGLOBIN 10.9 g/dL (12.0-15.00); MEAN CELL VOLUME 89.1 fL (80.00-100.00); MEAN CORPUSCULAR HEMOGLOBIN 29.5 pg (27.00-32.0); MEAN CORPUSCULAR HGB CONC 33.2 g/dl (32.0-36.0); RED BLOOD COUNT 3.69 M/uL (4.00-6.00); RED CELL DISTRIBUTION WIDTH 18.5 % (11.5-14.5)
[2023-07-10 14:24] LABS: CALCIUM 7.6 mg/dL (8.5-10.1); CREATININE SERUM 0.97 mg/dL (0.55-1.02); GFR 54.84; POTASSIUM 3.29 mEq/L (3.5-5.1)
[2023-07-10 14:50] LABS: PLATELET COUNT 103 K/uL (150-450)
[2023-07-10] MEDS ORDERED: ANIDULAFUNGIN 100 MG VIAL IV SCH (17:00)
[2023-07-10] MEDS ORDERED: POLYMYXIN B SULFATE 1,667 U/ML ML IV SCH (17:00)
[2023-07-11] MEDS ORDERED: PHENYLEPHRINE HCL 20 MG in 0.9 % SODIUM CHLORIDE 250 ML IV SCH (08:30)
== END 2023-07-13 06:59 | disposition expired | DRG 853 ==
LOC: ER 12:44 → MEDJ 20:57 → ICU-2 20:57 → SEC-K 08-15 18:04 → MEDJ 08-15 18:15 → SEC-K 08-15 19:55 → MEDI 08-15 19:56 → MEDJ 09-07 12:33
PROVIDERS: General Practice; Internal Medicine; Internal Medicine Geriatric Medicine; Internal Medicine Hematology & Oncology; Internal Medicine Infectious Disease; Internal Medicine Nephrology; Radiology Vascular & Interventional Radiology; Specialist; ADMIT Internal Medicine; ATTEND Internal Medicine
PROC: BW28ZZZ Computerized Tomography (CT Scan) of Head (ICD-10-PCS; 2022-08-13)
PROC: B030ZZZ Magnetic Resonance Imaging (MRI) of Brain (ICD-10-PCS; 2022-08-13)
PROC: B54DZZZ Ultrasonography of Bilateral Lower Extremity Veins (ICD-10-PCS; 2022-08-13)
PROC: B24BZZZ Ultrasonography of Heart with Aorta (ICD-10-PCS; 2022-08-13)
PROC: B345ZZZ Ultrasonography of Bilateral Common Carotid Arteries (ICD-10-PCS; 2022-08-13)
PROC: 0DH67UZ Insertion of Feeding Device into Stomach, Via Natural or Artificial Opening (ICD-10-PCS; 2022-08-14)
PROC: 3E0G76Z Introduction of Nutritional Substance into Upper GI, Via Natural or Artificial Opening (ICD-10-PCS; 2022-08-14)
PROC: 4A12X4Z Monitoring of Cardiac Electrical Activity, External Approach (ICD-10-PCS; 2022-08-15)
PROC: BT43ZZZ Ultrasonography of Bilateral Kidneys (ICD-10-PCS; 2022-08-18)
PROC: BT04ZZZ Plain Radiography of Kidneys, Ureters and Bladder (ICD-10-PCS; 2022-08-19)
PROC: B54MZZZ Ultrasonography of Right Upper Extremity Veins (ICD-10-PCS; 2022-09-02)
PROC: 0DP0XUZ Removal of Feeding Device from Upper Intestinal Tract, External Approach (ICD-10-PCS; 2022-09-03)
PROC: 8E0ZXY6 Isolation (ICD-10-PCS; 2022-09-08)
PROC: 0JB70ZZ Excision of Back Subcutaneous Tissue and Fascia, Open Approach (ICD-10-PCS; 2022-09-09)
PROC: 0JB70ZZ Excision of Back Subcutaneous Tissue and Fascia, Open Approach (ICD-10-PCS; principal; 2022-09-16)
PROC: 02HV33Z Insertion of Infusion Device into Superior Vena Cava, Percutaneous Approach (ICD-10-PCS; 2022-09-17)
PROC: 0JB70ZZ Excision of Back Subcutaneous Tissue and Fascia, Open Approach (ICD-10-PCS; 2022-09-24)
PROC: 0JB70ZZ Excision of Back Subcutaneous Tissue and Fascia, Open Approach (ICD-10-PCS; 2022-10-01)
PROC: 2W15X6Z Compression of Back using Pressure Dressing (ICD-10-PCS; 2022-10-06)
PROC: 0JB70ZZ Excision of Back Subcutaneous Tissue and Fascia, Open Approach (ICD-10-PCS; 2022-10-08)
PROC: 0JB70ZZ Excision of Back Subcutaneous Tissue and Fascia, Open Approach (ICD-10-PCS; 2022-10-15)
PROC: 0JB70ZZ Excision of Back Subcutaneous Tissue and Fascia, Open Approach (ICD-10-PCS; 2022-10-22)
PROC: 0JB70ZZ Excision of Back Subcutaneous Tissue and Fascia, Open Approach (ICD-10-PCS; 2022-10-29)
PROC: 30233N1 Transfusion of Nonautologous Red Blood Cells into Peripheral Vein, Percutaneous Approach (ICD-10-PCS; 2022-11-01)
PROC: 0JB70ZZ Excision of Back Subcutaneous Tissue and Fascia, Open Approach (ICD-10-PCS; 2022-11-06)
PROC: 0JB70ZZ Excision of Back Subcutaneous Tissue and Fascia, Open Approach (ICD-10-PCS; 2022-11-12)
PROC: 0JB70ZZ Excision of Back Subcutaneous Tissue and Fascia, Open Approach (ICD-10-PCS; 2022-11-19)
PROC: 2W15X6Z Compression of Back using Pressure Dressing (ICD-10-PCS; 2022-11-21)
PROC: 0JB70ZZ Excision of Back Subcutaneous Tissue and Fascia, Open Approach (ICD-10-PCS; 2022-11-26)
PROC: BW3GY0Z Magnetic Resonance Imaging (MRI) of Pelvic Region using Other Contrast, Unenhanced and Enhanced (ICD-10-PCS; 2022-12-02)
PROC: 0JB70ZZ Excision of Back Subcutaneous Tissue and Fascia, Open Approach (ICD-10-PCS; 2022-12-03)
PROC: 0JB70ZZ Excision of Back Subcutaneous Tissue and Fascia, Open Approach (ICD-10-PCS; 2022-12-12)
PROC: 0JB70ZZ Excision of Back Subcutaneous Tissue and Fascia, Open Approach (ICD-10-PCS; 2022-12-23)
PROC: BW28ZZZ Computerized Tomography (CT Scan) of Head (ICD-10-PCS; 2022-12-25)
PROC: 0JB70ZZ Excision of Back Subcutaneous Tissue and Fascia, Open Approach (ICD-10-PCS; 2023-01-07)
PROC: 0JB70ZZ Excision of Back Subcutaneous Tissue and Fascia, Open Approach (ICD-10-PCS; 2023-01-14)
PROC: BT04ZZZ Plain Radiography of Kidneys, Ureters and Bladder (ICD-10-PCS; 2023-01-14)
PROC: BW21ZZZ Computerized Tomography (CT Scan) of Abdomen and Pelvis (ICD-10-PCS; 2023-01-15)
PROC: B24BZZZ Ultrasonography of Heart with Aorta (ICD-10-PCS; 2023-01-18)
PROC: BW40ZZZ Ultrasonography of Abdomen (ICD-10-PCS; 2023-01-19)
PROC: 05HM33Z Insertion of Infusion Device into Right Internal Jugular Vein, Percutaneous Approach (ICD-10-PCS; 2023-01-20)
PROC: 0W9B30Z Drainage of Left Pleural Cavity with Drainage Device, Percutaneous Approach (ICD-10-PCS; 2023-01-21)
PROC: BW20ZZZ Computerized Tomography (CT Scan) of Abdomen (ICD-10-PCS; 2023-01-22)
PROC: 02PYX3Z Removal of Infusion Device from Great Vessel, External Approach (ICD-10-PCS; 2023-01-22)
PROC: 0F943ZZ Drainage of Gallbladder, Percutaneous Approach (ICD-10-PCS; 2023-01-28)
PROC: 0F9430Z Drainage of Gallbladder with Drainage Device, Percutaneous Approach (ICD-10-PCS; 2023-01-28)
PROC: 30233R1 Transfusion of Nonautologous Platelets into Peripheral Vein, Percutaneous Approach (ICD-10-PCS; 2023-01-31)
PROC: 0JB70ZZ Excision of Back Subcutaneous Tissue and Fascia, Open Approach (ICD-10-PCS; 2023-02-04)
PROC: BW21ZZZ Computerized Tomography (CT Scan) of Abdomen and Pelvis (ICD-10-PCS; 2023-02-04)
PROC: 0W9B30Z Drainage of Left Pleural Cavity with Drainage Device, Percutaneous Approach (ICD-10-PCS; 2023-02-10)
PROC: 0W9G30Z Drainage of Peritoneal Cavity with Drainage Device, Percutaneous Approach (ICD-10-PCS; 2023-02-12)
PROC: 0JB70ZZ Excision of Back Subcutaneous Tissue and Fascia, Open Approach (ICD-10-PCS; 2023-02-13)
PROC: BF031ZZ Plain Radiography of Gallbladder and Bile Ducts using Low Osmolar Contrast (ICD-10-PCS; 2023-02-20)
PROC: 0JB70ZZ Excision of Back Subcutaneous Tissue and Fascia, Open Approach (ICD-10-PCS; 2023-02-25)
PROC: 0JB70ZZ Excision of Back Subcutaneous Tissue and Fascia, Open Approach (ICD-10-PCS; 2023-03-04)
PROC: 0JB70ZZ Excision of Back Subcutaneous Tissue and Fascia, Open Approach (ICD-10-PCS; 2023-03-11)
PROC: 0JBM0ZZ Excision of Left Upper Leg Subcutaneous Tissue and Fascia, Open Approach (ICD-10-PCS; 2023-03-19)
PROC: 0JB70ZZ Excision of Back Subcutaneous Tissue and Fascia, Open Approach (ICD-10-PCS; 2023-03-19)
PROC: 0JB70ZZ Excision of Back Subcutaneous Tissue and Fascia, Open Approach (ICD-10-PCS; 2023-04-01)
PROC: 0JBM0ZZ Excision of Left Upper Leg Subcutaneous Tissue and Fascia, Open Approach (ICD-10-PCS; 2023-04-01)
PROC: 2W55X6Z Removal of Pressure Dressing on Back (ICD-10-PCS; 2023-04-12)
PROC: 0JB70ZZ Excision of Back Subcutaneous Tissue and Fascia, Open Approach (ICD-10-PCS; 2023-04-15)
PROC: 0JBM0ZZ Excision of Left Upper Leg Subcutaneous Tissue and Fascia, Open Approach (ICD-10-PCS; 2023-04-15)
PROC: 02PYX3Z Removal of Infusion Device from Great Vessel, External Approach (ICD-10-PCS; 2023-04-16)
PROC: 0JB70ZZ Excision of Back Subcutaneous Tissue and Fascia, Open Approach (ICD-10-PCS; 2023-04-22)
PROC: 0JBM0ZZ Excision of Left Upper Leg Subcutaneous Tissue and Fascia, Open Approach (ICD-10-PCS; 2023-04-22)
PROC: 0JB70ZZ Excision of Back Subcutaneous Tissue and Fascia, Open Approach (ICD-10-PCS; 2023-05-02)
PROC: BW28ZZZ Computerized Tomography (CT Scan) of Head (ICD-10-PCS; 2023-05-06)
PROC: 0JB70ZZ Excision of Back Subcutaneous Tissue and Fascia, Open Approach (ICD-10-PCS; 2023-06-10)
PROC: BT04ZZZ Plain Radiography of Kidneys, Ureters and Bladder (ICD-10-PCS; 2023-06-19)
PROC: 0JB70ZZ Excision of Back Subcutaneous Tissue and Fascia, Open Approach (ICD-10-PCS; 2023-06-25)
PROC: 02PYX3Z Removal of Infusion Device from Great Vessel, External Approach (ICD-10-PCS; 2023-06-27)
PROC: BT04ZZZ Plain Radiography of Kidneys, Ureters and Bladder (ICD-10-PCS; 2023-07-07)
DX: A41.89 Other specified sepsis (principal); I21.4 Non-ST elevation (NSTEMI) myocardial infarction; L89.154 Pressure ulcer of sacral region, stage 4; T80.212A Local infection due to central venous catheter, initial encounter; L89.153 Pressure ulcer of sacral region, stage 3; I63.89 Other cerebral infarction; R65.21 Severe sepsis with septic shock; U07.1 COVID-19; B37.49 Other urogenital candidiasis; N17.9 Acute kidney failure, unspecified; B49 Unspecified mycosis; I69.352 Hemiplegia and hemiparesis following cerebral infarction affecting left dominant side; I13.0 Hypertensive heart and chronic kidney disease with heart failure and stage 1 through stage 4 chronic kidney disease, or unspecified chronic kidney disease; E46 Unspecified protein-calorie malnutrition; D62 Acute posthemorrhagic anemia; J91.8 Pleural effusion in other conditions classified elsewhere; R18.8 Other ascites; K92.1 Melena; N04.9 Nephrotic syndrome with unspecified morphologic changes; I69.351 Hemiplegia and hemiparesis following cerebral infarction affecting right dominant side; E87.0 Hyperosmolality and hypernatremia; N39.0 Urinary tract infection, site not specified; L97.828 Non-pressure chronic ulcer of other part of left lower leg with other specified severity; E78.5 Hyperlipidemia, unspecified; I69.320 Aphasia following cerebral infarction; R13.19 Other dysphagia; B96.5 Pseudomonas (aeruginosa) (mallei) (pseudomallei) as the cause of diseases classified elsewhere; B96.1 Klebsiella pneumoniae [K. pneumoniae] as the cause of diseases classified elsewhere; L08.9 Local infection of the skin and subcutaneous tissue, unspecified; D50.8 Other iron deficiency anemias; D51.0 Vitamin B12 deficiency anemia due to intrinsic factor deficiency; D63.8 Anemia in other chronic diseases classified elsewhere; D69.6 Thrombocytopenia, unspecified; E88.09 Other disorders of plasma-protein metabolism, not elsewhere classified; B95.2 Enterococcus as the cause of diseases classified elsewhere; B95.62 Methicillin resistant Staphylococcus aureus infection as the cause of diseases classified elsewhere; B96.89 Other specified bacterial agents as the cause of diseases classified elsewhere; E11.22 Type 2 diabetes mellitus with diabetic chronic kidney disease; E11.65 Type 2 diabetes mellitus with hyperglycemia; N18.9 Chronic kidney disease, unspecified; I50.9 Heart failure, unspecified; I69.391 Dysphagia following cerebral infarction; K80.20 Calculus of gallbladder without cholecystitis without obstruction; F03.90 Unspecified dementia, unspecified severity, without behavioral disturbance, psychotic disturbance, mood disturbance, and anxiety; E03.9 Hypothyroidism, unspecified; E11.622 Type 2 diabetes mellitus with other skin ulcer; L97.519 Non-pressure chronic ulcer of other part of right foot with unspecified severity; L97.529 Non-pressure chronic ulcer of other part of left foot with unspecified severity; Z68.32 Body mass index [BMI] 32.0-32.9, adult; Z74.01 Bed confinement status; Z79.4 Long term (current) use of insulin; Z66 Do not resuscitate; D25.1 Intramural leiomyoma of uterus; R93.89 Abnormal findings on diagnostic imaging of other specified body structures; F42.3 Hoarding disorder; D72.829 Elevated white blood cell count, unspecified; D51.3 Other dietary vitamin B12 deficiency anemia; B35.3 Tinea pedis; K59.00 Constipation, unspecified
CPT/HCPCS: 70544; 72198